=== PATIENT | male | born 1945 | race Caucasian/White ===

== ENCOUNTER → 2017-07-28 09:52 | Outpatient (CLI) | payer MEDICARE, SELFPAY ==
[2017-07-28 12:33] LABS: Estimated Glomerular Filt Rate > 60.0 mL/min (>60); Glucose 92 mg/dL (80-110); HEMOLYSIS 23 (0-50); Potassium 4.2 mmol/L (3.4-5.1); Sodium 141 mmol/L (137-145)
[2017-07-28 12:58] LABS: Free T4, Direct Thyroxine 1.54 ng/dL (0.78-2.19)
[2017-07-28 13:12] LABS: Thyroid Stimulating Hormone 4.23 uIU/mL (0.47-4.68)
== END ==
PROVIDERS: PCP Internal Medicine; Visit Provider Internal Medicine
DX: E03.9 Hypothyroidism, unspecified (principal)
CPT/HCPCS: 36415; 80048; 84439; 84443

== ENCOUNTER → 2017-12-31 12:52 | Outpatient (CLI) | payer MEDICARE, SELFPAY ==
[2017-12-31 14:52] LABS: Alanine Aminotransferase 24 IU/L (21-72); Albumin 4.6 g/dL (3.5-5.0); Albumin Globulin Ratio 1.5 (1.0-2.8); Alkaline Phosphatase 81 U/L (38-126); Aspartate Aminotransferase 23 IU/L (17-59); BUN Creatinine Ratio 26.7 (6-22); Bilirubin Total 0.6 mg/dL (0.2-1.3); Blood Urea Nitrogen 24 mg/dL (9-20); Calcium 9.8 mg/dL (8.4-10.2); Carbon Dioxide 35 mmol/L (22-32); Chloride 100 mmol/L (98-107); Estimated Glomerular Filt Rate > 60.0 mL/min (>60); Glucose 89 mg/dL (80-110); HEMOLYSIS < 15 (0-50); Sodium 145 mmol/L (137-145); Total Protein 7.6 g/dL (6.3-8.2)
[2017-12-31 15:07] LABS: Free T4, Direct Thyroxine 1.76 ng/dL (0.78-2.19)
[2017-12-31 15:21] LABS: Thyroid Stimulating Hormone 2.19 uIU/mL (0.47-4.68)
== END ==
PROVIDERS: PCP Internal Medicine; Visit Provider Internal Medicine
DX: E03.9 Hypothyroidism, unspecified (principal); R73.02 Impaired glucose tolerance (oral)
CPT/HCPCS: 36415; 80053; 84439; 84443

== ENCOUNTER → 2018-01-06 11:26 | Outpatient (CLI) | payer MEDICARE, SELFPAY ==
--- NOTE | 2018-01-06 11:29 | DI.RAD.S_ITS ---
PROCEDURE: XR CHEST 2V INDICATIONS: cough/weight loss TECHNIQUE: 2 views of the chest were acquired. COMPARISON: [facility], , CHEST 2 VIEW, 10/06/2010, 9:53. FINDINGS: Surgical changes and devices: None. Lungs and pleura: No pleural effusions or pneumothorax. Lungs are clear. Mediastinum: Mediastinal contours are normal. Heart size is normal. Bones and chest wall: No suspicious bony abnormalities. Soft tissues appear unremarkable. IMPRESSION: No acute cardiopulmonary pathology. Dictated by: David Garber M.D. on 01/06/2018 at 12:08 Approved by: David Garber M.D. on 01/06/2018 at 12:08
[2018-01-06 12:08] LABS: Add Manual Diff / Slide Review NO; Basophils Percent Auto 0.7 % (0-2); Hematocrit 51.1 % (41-53); Hemoglobin 16.9 g/dL (13.5-17.5); Lymphocytes Percent Auto 28.4 % (25-40); Mean Corpuscular HGB Conc 33.1 % (30-36); Mean Corpuscular Hemoglobin 31.2 PG (26-34); Mean Corpuscular Volume 94.1 fL (80-100); Monocytes Percent Auto 8.2 % (3-14); Neutrophils Absolute Auto 5000 /uL (3000-5900); Neutrophils Percent Auto 60.7 % (50-75); Platelet Count 214 X10^3/uL (150-400); Red Blood Cell Count 5.43 X10^6/uL (4.5-5.9); White Blood Cell Count 8.3 X10^3/uL (4.5-11.0)
[2018-01-06 12:38] LABS: Erythrocyte Sedimentation Rate 1 MM/HR (0-15)
[2018-01-06 13:03] LABS: C-Reactive Protein Quant < 0.5 mg/dL (<1.0)
== END ==
PROVIDERS: PCP Internal Medicine; Visit Provider Internal Medicine
DX: R05 Cough (principal); R63.4 Abnormal weight loss; E03.9 Hypothyroidism, unspecified; E78.2 Mixed hyperlipidemia
CPT/HCPCS: 36415; 71046; 85025; 85651; 86140

== ENCOUNTER → 2019-03-03 11:24 | Outpatient (CLI) | payer MEDICARE, SELFPAY | PROVIDERS: Family Provider Internal Medicine; PCP Internal Medicine; Visit Provider Nurse Practitioner | DX: J02.9 Acute pharyngitis, unspecified (principal) | CPT/HCPCS: 87070; 87077; 87185 ==

== ENCOUNTER → 2019-04-20 09:20 | Outpatient (CLI) | payer MEDICARE, SELFPAY ==
[2019-04-20 10:25] LABS: Alanine Aminotransferase 12 IU/L (<50); Albumin 4.2 g/dL (3.5-5.0); Albumin Globulin Ratio 1.1 (1.0-2.8); Alkaline Phosphatase 107 U/L (38-126); Aspartate Aminotransferase 22 IU/L (17-59); BUN Creatinine Ratio 24.3 (6-22); Bilirubin Total 0.7 mg/dL (0.2-1.3); Blood Urea Nitrogen 17 mg/dL (9-20); Calcium 9.3 mg/dL (8.4-10.2); Carbon Dioxide 31 mmol/L (22-32); Chloride 100 mmol/L (98-107); Cholesterol 204 mg/dL (140-199); Estimated Glomerular Filt Rate > 60.0 mL/min (>60); Glucose 103 mg/dL (80-110); HDL Cholesterol 48 mg/dL (40-60); HEMOLYSIS < 15 (0-50); LDL Cholesterol Calculated 144 mg/dL (<100); Potassium 4.2 mmol/L (3.4-5.1); Sodium 140 mmol/L (137-145); Total Protein 8.2 g/dL (6.3-8.2); Triglycerides 59 mg/dL (35-150)
[2019-04-20 10:26] LABS: Erythrocyte Sedimentation Rate 22 MM/HR (0-15)
[2019-04-20 10:52] LABS: Prostate Specific Antigen Scrn 2.59 ng/mL (0.1-4.0)
[2019-04-20 11:40] LABS: Free T4, Direct Thyroxine 2.37 ng/dL (0.78-2.19)
[2019-04-20 11:54] LABS: Thyroid Stimulating Hormone 3.51 uIU/mL (0.47-4.68)
== END ==
PROVIDERS: PCP Internal Medicine; Visit Provider Internal Medicine
DX: E03.9 Hypothyroidism, unspecified (principal); E78.2 Mixed hyperlipidemia; R63.4 Abnormal weight loss; R73.02 Impaired glucose tolerance (oral); Z12.5 Encounter for screening for malignant neoplasm of prostate
CPT/HCPCS: 36415; 80053; 80061; 84439; 84443; 85651; 86140; G0103

== ENCOUNTER 2020-09-19 10:44 | Emergency (ER) | payer MEDICARE, SELFPAY ==
[2020-09-19 10:49] VITALS: BP 141/98; PULSE 97; RESP 15; TEMP 36.6; O2SAT 97; BMI 22.4
== END 2020-09-19 13:22 | disposition left against medical advice (07) ==
PROVIDERS: Emergency Provider Emergency Medicine; PCP Internal Medicine
DX: M79.604 Pain in right leg (principal)
CPT/HCPCS: 99281

== ENCOUNTER → 2020-09-20 11:46 | Outpatient (CLI) | payer MEDICARE, SELFPAY ==
[2020-09-20 13:08] LABS: Erythrocyte Sedimentation Rate 2 MM/HR (0-15)
[2020-09-20 13:27] LABS: Alanine Aminotransferase 18 IU/L (<50); Albumin 4.4 g/dL (3.5-5.0); Albumin Globulin Ratio 1.4 (1.0-2.8); Alkaline Phosphatase 77 U/L (38-126); Aspartate Aminotransferase 27 IU/L (17-59); BUN Creatinine Ratio 32.4 (6-22); Bilirubin Total 0.6 mg/dL (0.2-1.3); Blood Urea Nitrogen 24 mg/dL (9-20); C-Reactive Protein Quant < 0.5 mg/dL (<1.0); Carbon Dioxide 29 mmol/L (22-32); Chloride 101 mmol/L (98-107); Creatine Kinase 53 U/L (55-170); Estimated Glomerular Filt Rate > 60.0 mL/min (>60); Globulin 3.2 g/dL (1.7-4.1); Glucose 182 mg/dL (80-110); HEMOLYSIS < 15 (0-50); Potassium 4.4 mmol/L (3.4-5.1); Sodium 137 mmol/L (137-145); Total Protein 7.6 g/dL (6.3-8.2)
== END ==
PROVIDERS: PCP Internal Medicine; Referring Provider Internal Medicine; Visit Provider Internal Medicine
DX: E03.9 Hypothyroidism, unspecified (principal); I10 Essential (primary) hypertension; E78.2 Mixed hyperlipidemia
CPT/HCPCS: 36415; 80053; 82550; 84439; 84443; 85651; 86140

== ENCOUNTER → 2021-02-28 15:32 | Outpatient (CLI) | payer MEDICARE, SELFPAY ==
[2021-02-28 15:52] LABS: Add Manual Diff / Slide Review NO; Basophils Absolute Auto 100 /uL (0-100); Basophils Percent Auto 0.7 % (0-2); Eosinophils Absolute Auto 200 /uL (0-450); Eosinophils Percent Auto 2.2 % (2-4); Hematocrit 46.9 % (41-53); Hemoglobin 15.4 g/dL (13.5-17.5); Lymphocytes Absolute Auto 1900 /uL (1100-4500); Lymphocytes Percent Auto 24.6 % (25-40); Mean Corpuscular HGB Conc 32.9 % (30-36); Mean Corpuscular Hemoglobin 30.6 PG (26-34); Monocytes Absolute Auto 700 /uL (0-900); Monocytes Percent Auto 8.3 % (3-14); Neutrophils Absolute Auto 5000 /uL (1500-7000); Neutrophils Percent Auto 64.2 % (50-75); Platelet Count 280 X10^3/uL (150-400); Red Blood Cell Count 5.04 X10^6/uL (4.5-5.9); Red Cell Distribution Width 13.7 % (11.6-14.8); White Blood Cell Count 7.8 X10^3/uL (4.5-11.0)
[2021-02-28 16:15] LABS: Erythrocyte Sedimentation Rate 6 MM/HR (0-15)
[2021-02-28 16:16] LABS: Alanine Aminotransferase 23 IU/L (<50); Albumin 4.2 g/dL (3.5-5.0); Albumin Globulin Ratio 1.4 (1.0-2.8); Alkaline Phosphatase 84 U/L (38-126); Amylase 74 U/L (30-110); Aspartate Aminotransferase 28 IU/L (17-59); Bilirubin Total 0.5 mg/dL (0.2-1.3); Blood Urea Nitrogen 19 mg/dL (9-20); Calcium 9.5 mg/dL (8.4-10.2); Carbon Dioxide 34 mmol/L (22-32); Chloride 102 mmol/L (98-107); Estimated Glomerular Filt Rate > 60.0 mL/min (>60); Globulin 3.1 g/dL (1.7-4.1); Glucose 100 mg/dL (80-110); HEMOLYSIS 23 (0-50); Lipase 123 U/L (23-300); Potassium 4.1 mmol/L (3.4-5.1); Sodium 141 mmol/L (137-145); Total Protein 7.3 g/dL (6.3-8.2)
[2021-02-28 16:55] LABS: C-Reactive Protein Quant 1.4 mg/dL (<1.0); Hemoglobin A1C% w Est Avg Glu 5.5 % (4.0-6.0)
[2021-02-28 17:13] LABS: Free T4, Direct Thyroxine 1.68 ng/dL (0.78-2.19)
[2021-02-28 17:27] LABS: Thyroid Stimulating Hormone 8.25 uIU/mL (0.47-4.68)
== END ==
PROVIDERS: PCP Internal Medicine; Referring Provider Internal Medicine; Visit Provider Internal Medicine
DX: E03.9 Hypothyroidism, unspecified (principal); R73.02 Impaired glucose tolerance (oral); E78.2 Mixed hyperlipidemia; R63.4 Abnormal weight loss
CPT/HCPCS: 36415; 80053; 82150; 83036; 83690; 84439; 84443; 85025; 85651; 86140

== ENCOUNTER 2022-05-21 07:11 | Day surgery (SDC) | payer MEDICARE, SELFPAY ==
--- NOTE | 2022-05-21 | PATH_ITS ---
[facility] Accession Number: [id number] No. of containers..01 Tissue . 01 Material submitted: . rectum - RECTAL MASS . 01 Diagnosis: Rectum Mass, Biopsies: Invasive adenocarcinoma, moderately differentiated, see microscopic description. No lymphovascular or perineural invasion identified. MRV 05/27/2022 1250 Local . 01 Comment: Resurlts were called to SYL Xie, on 05/27/2022 at 12:50 pm. . 01 Electronically signed: . Kj Granado MD, Pathologist NPI- [id number] . 01 Gross description: . RECTAL MASS: Received in formalin are multiple fragment(s) of berry, soft tissue measuring 0.1 x 0.1 x 0.1 cm to 1.5 x 1.0 x 0.6 cm submitted entirely in 2 cassette(s) /DENIS 05/22/2022 0057 Local . 01 Microscopic: . Examination of the rectal biopsy reveals tumor that is composed of irregular shaped complex glands that infitrate the submucosa. The neoplastic glands are lined by large pleomorphic cells with disordered stratification and loss of nuclear polarity. Mitotic figures are noted, and there is an inflammatory and desmoplastic stromal response. Negative for lymphovascular or perineural invasion. . As part of ongoing customer quality engineer, this case is also reviewed by Dr. Manisha De La Garza, who agrees with the interpretation. . 01 Pathologist provided ICD-10: K62.5, C21.8 . 01 CPT . 463137 Specimen Comment: A courtesy copy of this report has been sent to [phone] Performed at: 01 [facility] [address] [place] [address] Suite [facility], [place], [place] [id number] MD Percy Rosa MD Phone: [phone]
[2022-05-21] MEDS: LACTATED RINGERS 1,000 ML 42 ML IV (07:24)
[2022-05-21 07:32] VITALS: BP 110/76; PULSE 124; RESP 17; TEMP 36.4; O2SAT 95; BMI 21.7
--- NOTE | 2022-05-21 08:24 | PM.PREOP ---
Pre-operative Note COVID-19 COVID-19 status: Not tested Interval Note History & Physical reviewed/Exam performed by Physician: Yes Changes to H&P: No ASA Class (for procedural sedation): II
[2022-05-21] MEDS: LACTATED RINGERS 1,000 ML 120 ML IV (08:30)
--- NOTE | 2022-05-21 09:01 | P.OP.COLON_ITS ---
Operative Date/Time/Diagnoses Date of procedure: 05/21/22 Time of procedure: 09:02 Pre-op diagnosis: Rectal bleeding Post-op diagnosis: same Procedure & Clinicians Study performed: Colonoscopy Same procedure as scheduled: Yes Surgeon: Kevyn Haas Procedure Notes Procedure in detail: Surgeon: Kevyn Haas MD Anesthesia: Christine Agarwal REFRIGERATION UNIT REPAIRER Procedure: The patient was brought to the endoscopy suite, placed in left lateral decubitus position. The patient was connected to monitoring devices. A time-out was performed. Sedation was administered. Once the patient was adequately sedated, a digital rectal exam was performed and was normal aside from extensive external hemorrhoids. The scope was then inserted and advanced to the cecum where the appendiceal orifice was identified and photographed. The scope was then slowly withdrawn over greater than 6 minutes. The mucosa was tho roughly inspected. There was a large, friable circumferential mass in the upper rectum roughly 10 cm in. Multiple biopsies were taken with hot snare and cold snare and cold Jumbo forceps. Three small tattoos were placed just distal to the mass. The scope was retroflexed in the rectum. Mild internal hemorrhoids were noted. The scope was straightened and removed. The patient was awakened and brought to recovery. Scope withdrawal time: 21 minutes Sedation time: 27 minutes EBL: 10 mL Findings: Large circumferential mass in the upper rectum concerning for cancer Post-procedure Recommendations: Will call with biopsy results Disposition: PACU
[2022-05-21 09:06] VITALS: BP 106/67; PULSE 106; RESP 21; TEMP 37.2; O2SAT 96
[2022-05-21 09:13] VITALS: BP 114/81; PULSE 109; RESP 17; TEMP 37; O2SAT 93
[2022-05-21 09:17] VITALS: BP 120/83; PULSE 108; RESP 18; TEMP 37.1; O2SAT 90
[2022-05-21 09:24] VITALS: BP 124/83; PULSE 107; RESP 18; TEMP 36.9; O2SAT 96
[2022-05-21 09:38] VITALS: BP 138/84; PULSE 97; RESP 16; TEMP 36.3; O2SAT 93
== END 2022-05-21 09:41 | disposition home or self-care (01) ==
PROVIDERS: PCP Internal Medicine; Referring Provider Surgery; Visit Provider Surgery
PROC: 0DJD8ZZ Inspection of Lower Intestinal Tract, Via Natural or Artificial Opening Endoscopic (ICD-10-PCS; CPT 45378; principal; 2022-05-21 08:15)
DX: C20 Malignant neoplasm of rectum (principal); K64.4 Residual hemorrhoidal skin tags; K64.8 Other hemorrhoids
CPT/HCPCS: 45385; 45380; 45381; J2704

== ENCOUNTER → 2022-05-22 11:37 | Outpatient (CLI) | payer MEDICARE, SELFPAY ==
[2022-05-22 12:29] LABS: Add Manual Diff / Slide Review NO; Basophils Absolute Auto 0 /uL (0-100); Basophils Percent Auto 0.6 % (0-2); Eosinophils Absolute Auto 100 /uL (0-450); Eosinophils Percent Auto 1.6 % (2-4); Hemoglobin 15.6 g/dL (13.5-17.5); Lymphocytes Absolute Auto 1600 /uL (1100-4500); Lymphocytes Percent Auto 23.1 % (25-40); Mean Corpuscular HGB Conc 33.2 % (30-36); Mean Corpuscular Hemoglobin 31.1 PG (26-34); Mean Corpuscular Volume 93.7 fL (80-100); Monocytes Absolute Auto 600 /uL (0-900); Monocytes Percent Auto 7.9 % (3-14); Neutrophils Absolute Auto 4700 /uL (1500-7000); Neutrophils Percent Auto 66.8 % (50-75); Platelet Count 224 X10^3/uL (150-400); Red Blood Cell Count 5.01 X10^6/uL (4.5-5.9); Red Cell Distribution Width 14.1 % (11.6-14.8); White Blood Cell Count 7.1 X10^3/uL (4.5-11.0)
[2022-05-22 12:48] LABS: Alanine Aminotransferase 19 IU/L (<50); Albumin Globulin Ratio 1.1 (1.0-2.8); Alkaline Phosphatase 90 U/L (38-126); Aspartate Aminotransferase 24 IU/L (17-59); Bilirubin Total 0.5 mg/dL (0.2-1.3); Blood Urea Nitrogen 17 mg/dL (9-20); Calcium 8.7 mg/dL (8.4-10.2); Carbon Dioxide 33 mmol/L (22-32); Chloride 100 mmol/L (98-107); Estimated Glomerular Filt Rate > 60 mL/min (>60); Globulin 3.5 g/dL (1.7-4.1); Glucose 125 mg/dL (80-110); HEMOLYSIS < 15 (0-50); Potassium 3.7 mmol/L (3.4-5.1); Sodium 140 mmol/L (137-145); Total Protein 7.5 g/dL (6.3-8.2)
== END ==
PROVIDERS: PCP Internal Medicine; Referring Provider Surgery; Visit Provider Surgery
DX: K62.5 Hemorrhage of anus and rectum (principal)
CPT/HCPCS: 36415; 80053; 82378; 85025

== ENCOUNTER → 2022-05-26 09:53 | Outpatient (CLI) | payer MEDICARE, SELFPAY ==
--- NOTE | 2022-05-26 09:55 | DI.CT.S_ITS ---
PROCEDURE: CT CHEST ABD PEL W CON INDICATIONS: rectal mass TECHNIQUE: After the administration of oral and intravenous contrast, axial sections acquired from the supraclavicular neck to the pubic symphysis. Coronal and sagittal reformats were performed. For radiation dose reduction, the following was used: automated exposure control, adjustment of mA and/or kV according to patient size. COMPARISON: [facility], CT, THORAX WITH CONTRAST, 03/12/2016, 8:20. FINDINGS: CHEST: Lower Neck: No enlarged lymph nodes. Axillae: No enlarged lymph nodes. Chest Wall: Left chest wall fatty mass redemonstrated, probable intramuscular lipoma. Lungs and pleura: Emphysema is present. No consolidation or pleural effusion. Minimal patchy ground-glass opacity present right upper lobe. Heart: No pericardial effusion. Thoracic Vessels: The aorta and pulmonary arteries demonstrate normal size. Mediastinum and Diandra: No enlarged lymph nodes. Esophagus: No wall thickening. ABDOMEN: Liver: Multiple scattered subcentimeter hypodensities present within the liver, too small to characterize. One small hypodensity within the upper aspect of segment 2 (2/58) was present on the prior examination, and may represent a small cyst or hemangioma. Gallbladder: Unremarkable. Biliary ducts: Unremarkable. Pancreas: Unremarkable. Spleen: Unremarkable. Adrenal Glands: No definite suspicious adrenal nodule identified. Low-density thickening of both adrenal glands appear similar to the prior exam. Kidneys and Ureters: No hydronephrosis. Cortical cyst left upper kidney redemonstrated. Probable small nonobstructing stone right upper kidney. Stomach and Bowel: Segmental wall thickening of the upper rectum/rectosigmoid junction, likely corresponding to the provided clinical history of rectal mass. There are several adjacent lymph nodes which are suspicious, for example a 8 mm lymph node interposed between the suspected mass and the sacrum (series 6, image 45). No substantial upstream colonic dilation. Peritoneum: No abnormal intraperitoneal fluid. No free air. Abdominal Nodes: No retroperitoneal or mesenteric adenopathy by size criteria. Vessels: Aorta and inferior vena cava are normal in size. PELVIS: Pelvic Organs: Unremarkable CT appearance. Bladder: Unremarkable. Pelvic Nodes: Prominent/suspicious perirectal lymph nodes as above. No suspicious inguinal or external iliac chain lymph nodes identified. Bones: Multilevel degenerative change of the visualized spine. IMPRESSION: 1. Segmental wall thickening of the upper rectum/rectosigmoid junction, likely corresponds to the provided history of a rectal mass. Several adjacent perirectal lymph nodes are suspicious for georgie metastatic disease. 2. Multiple subcentimeter hepatic hypodensities are present, too small to characterize and indeterminate. Due to small size these would likely be difficult to definitively characterize by any imaging modality. Attention on follow-up is recommended. 3. No findings highly suspicious for thoracic metastatic disease identified. 4. Minimal patchy ground-glass opacity right upper lobe, likely infectious/inflammatory. Dictated by: Pillo Jacob M.D. on 05/26/2022 at 17:57 Approved by: Pillo Jacob M.D. on 05/26/2022 at 18:30
== END ==
PROVIDERS: PCP Internal Medicine; Referring Provider Surgery; Visit Provider Surgery
DX: K62.5 Hemorrhage of anus and rectum (principal); K62.9 Disease of anus and rectum, unspecified; R59.0 Localized enlarged lymph nodes; R22.2 Localized swelling, mass and lump, trunk; J43.9 Emphysema, unspecified
CPT/HCPCS: 71260; 74177; Q9967

== ENCOUNTER → 2022-06-03 13:05 | Outpatient (CLI) | payer MEDICARE, SELFPAY ==
--- NOTE | 2022-06-03 13:07 | DI.MRI.S_ITS ---
PROCEDURE: MR PELIS WO/W CON INDICATIONS: rectal exam TECHNIQUE: Coronal HASTE, sagittal T2 FSE, axial T1 FSE, axial and coronal nonbreath-hold T2 FSE. Axial dynamic VIBE during administration of contrast. Post-contrast axial and coronal VIBE/2-D FLASH with fat saturation from the iliac crests to the symphysis. Optional diffusion weighted imaging and ADC may be performed. COMPARISON: None. FINDINGS: Image quality: Excellent. Rectum: Morphology: Circumferential Clock face of tumor involvement: 2:00 to 12:00 Mucinous (high T2 signal): No Craniocaudal length: 6.0 cm Distance to anal verge: 9 cm Distance to top of sphincter complex/anorectal junction: 5 cm Relationship to anterior peritoneal reflection: At and above Tumor at or below puborectalis sling: Above T staging: Depth of extramural invasion: 16 mm. Extramural vascular invasion: No T3 tumors only: distance to mesorectal fascia (circumferential resection margin): 16 mm Pelvic organ involvement: Genitourinary: None. Pelvic sidewall (obturator internus, piriformis, ischiococcygeus muscles): No Pelvic floor (pubococcygeus, iliococcygeus, puborectalis, levator plate): No Sacrum: No Vessels (internal and external iliac arteries and veins): None Nerves (lumbosacral nerve roots): No Regional lymph nodes (mesorectal, inguinal, iliac): Single enlarged mesorectal lymph node by strict grading criteria (05/30). Other bowel and peritoneum: No pathologic free pelvic fluid. More proximal colon and small bowel loops are normal in caliber. Bones: Marrow is normal in overall signal. 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 Dictated by: Sha Lou M.D. on 06/03/2022 at 15:37 Approved by: Sha Lou M.D. on 06/03/2022 at 15:45
== END ==
PROVIDERS: PCP Internal Medicine; Referring Provider Surgery; Visit Provider Surgery
DX: C20 Malignant neoplasm of rectum (principal)
CPT/HCPCS: 72197; A9579

== ENCOUNTER → 2022-06-16 12:06 | Outpatient (CLI) | payer MEDICARE, SELFPAY | PROVIDERS: PCP Internal Medicine; Referring Provider Surgery; Visit Provider Surgery | DX: Z01.811 Encounter for preprocedural respiratory examination (principal); C21.8 Malignant neoplasm of overlapping sites of rectum, anus and anal canal | CPT/HCPCS: 93005 ==

== ENCOUNTER → 2023-02-03 10:17 | Outpatient (CLI) | payer MEDICARE, SELFPAY | PROVIDERS: PCP Internal Medicine; Visit Provider Surgery | DX: L24.B1 Irritant contact dermatitis related to digestive stoma or fistula (principal); Z93.2 Ileostomy status | CPT/HCPCS: 99203; 99213 ==

== ENCOUNTER → 2023-02-10 10:47 | Outpatient (CLI) | payer MEDICARE, SELFPAY | PROVIDERS: PCP Internal Medicine; Referring Provider Internal Medicine; Visit Provider Surgery | DX: Z43.3 Encounter for attention to colostomy (principal) | CPT/HCPCS: 99213 ==

== ENCOUNTER → 2023-03-25 16:33 | Outpatient (CLI) | payer MEDICARE, SELFPAY ==
--- NOTE | 2023-03-25 16:35 | DI.RAD.S_ITS ---
PROCEDURE: XR CHEST 2V INDICATIONS: cough TECHNIQUE: 2 views of the chest were acquired. COMPARISON: [facility], , XR CHEST 2V, 01/06/2018, 11:29. [facility], , CHEST 2 VIEW, 10/06/2010, 9:53. FINDINGS: Surgical changes and devices: None. Lungs and pleura: Lungs are clear. No pleural effusions or pneumothorax. Mediastinum: Mediastinal contours are normal. Heart size is normal. Bones and chest wall: No suspicious bony abnormalities. Soft tissues appear unremarkable. IMPRESSION: No acute cardiopulmonary abnormality is seen. Dictated by: Sha Lou M.D. on 03/26/2023 at 13:27 Approved by: Sha Lou M.D. on 03/26/2023 at 13:28
== END ==
PROVIDERS: PCP Internal Medicine; Referring Provider Nurse Practitioner Family; Visit Provider Nurse Practitioner Family
DX: R05.9 Cough, unspecified (principal)
CPT/HCPCS: 71046

== ENCOUNTER → 2023-10-27 07:57 | Outpatient (CLI) | payer MEDICARE, SELFPAY ==
[2023-10-27 09:16] LABS: Add Manual Diff / Slide Review NO; Basophils Absolute Auto 100 /uL (0-100); Basophils Percent Auto 1.2 % (0-2); Eosinophils Absolute Auto 300 /uL (0-450); Eosinophils Percent Auto 5.7 % (2-4); Hematocrit 44.2 % (41-53); Hemoglobin 14.9 g/dL (13.5-17.5); Lymphocytes Absolute Auto 1300 /uL (1100-4500); Mean Corpuscular HGB Conc 33.6 % (30-36); Mean Corpuscular Volume 95.1 fL (80-100); Monocytes Absolute Auto 400 /uL (0-900); Neutrophils Absolute Auto 2700 /uL (1500-7000); Neutrophils Percent Auto 57.1 % (50-75); Platelet Count 201 X10^3/uL (150-400); Red Blood Cell Count 4.65 X10^6/uL (4.5-5.9); White Blood Cell Count 4.8 X10^3/uL (4.5-11.0)
[2023-10-27 09:32] LABS: Alanine Aminotransferase 13 IU/L (<50); Albumin 4.1 g/dL (3.5-5.0); Albumin Globulin Ratio 1.3 (1.0-2.8); Alkaline Phosphatase 84 U/L (38-126); Aspartate Aminotransferase 22 IU/L (17-59); BUN Creatinine Ratio 26.8 (6-22); Bilirubin Total 0.7 mg/dL (0.2-1.3); Blood Urea Nitrogen 22 mg/dL (9-20); Calcium 9.1 mg/dL (8.4-10.2); Carbon Dioxide 31 mmol/L (22-32); Chloride 105 mmol/L (98-107); Cholesterol 195 mg/dL (140-199); Estimated Glomerular Filt Rate > 60 mL/min (>60); Globulin 3.2 g/dL (1.7-4.1); Glucose 113 mg/dL (80-110); HDL Cholesterol 73 mg/dL (40-60); HEMOLYSIS < 15 (0-50); LDL Cholesterol Calculated 112 mg/dL (<100); Potassium 4.2 mmol/L (3.4-5.1); Sodium 140 mmol/L (137-145); Total Protein 7.3 g/dL (6.3-8.2); Triglycerides 50 mg/dL (35-150)
[2023-10-27 09:44] LABS: Free T4, Direct Thyroxine 1.87 ng/dL (0.78-2.19)
[2023-10-27 09:58] LABS: Thyroid Stimulating Hormone 0.766 uIU/mL (0.47-4.68)
== END ==
PROVIDERS: PCP Internal Medicine; Referring Provider Internal Medicine; Visit Provider Internal Medicine
DX: J44.9 Chronic obstructive pulmonary disease, unspecified (principal); E78.2 Mixed hyperlipidemia; E03.9 Hypothyroidism, unspecified; R73.02 Impaired glucose tolerance (oral); C20 Malignant neoplasm of rectum
CPT/HCPCS: 36415; 80053; 80061; 84439; 84443; 85025

== ENCOUNTER 2023-12-13 19:01 | Observation (INO) | payer MEDICARE, SELFPAY ==
[2023-12-13] VITALS (14 sets, daily range): BP systolic 88–124; BP diastolic 51–66; PULSE 94–117; RESP 17–27; TEMP 36.7; O2SAT 88–100; BMI 20.6
--- NOTE | 2023-12-13 19:12 | DI.RAD.S_ITS ---
PROCEDURE: XR CHEST 1V INDICATIONS: suspected sepsis TECHNIQUE: One view of the chest was acquired. COMPARISON: [facility], NANCY, XR CHEST 2V, 03/25/2023, 16:53. [facility], CR, XR CHEST 2V, 01/06/2018, 11:29. FINDINGS: Surgical changes and devices: None. Lungs and pleura: Lungs are clear. No pleural effusions or pneumothorax. Mediastinum: Mediastinal contours appear normal. Heart size is normal. Bones and chest wall: No suspicious bony lesions. Overlying soft tissues appear unremarkable. IMPRESSION: No acute cardiopulmonary abnormality is seen. Dictated by: Magnus Ashley M.D. on 12/13/2023 at 20:00 Approved by: Magnus Ashley M.D. on 12/13/2023 at 20:01
--- NOTE | 2023-12-13 19:12 | EKG_ITS ---
[facility] [address] [place] [address] Test Date: 2023-12-13 Pat Name: Neris Bishop Department: [facility] Room: Gender: Male Manager Trade: HERACLIO : 1945 Requested By: Order Number: [id number] Reading MD: Alexandro Russell MD Measurements Intervals [place] Rate: 101 P: 85 DC: 152 QRS: -87 QRSD: 98 T: 74 QT: 364 QTc: 471 Interpretive Statements Sinus tachycardia Biatrial enlargement Left axis deviation Pulmonary disease pattern Electronically Signed On 12-14-2023 8:50:46 PDT by Alexandro Russell MD
--- NOTE | 2023-12-13 19:16 | DI.CT.S_ITS ---
PROCEDURE: CT HEAD/BRAIN WO CON INDICATIONS: syncope, +LOC TECHNIQUE: Noncontrast 4.5 mm thick angled axial sections acquired from the foramen magnum to the vertex, with coronal and sagittal reformats. For radiation dose reduction, the following was used: automated exposure control, adjustment of mA and/or kV according to patient size. COMPARISON: None. FINDINGS: Image quality: Diagnostic. CSF spaces: Basal cisterns are patent. No extra-axial fluid collections. The ventricles are symmetric in size and shape. Brain: No intracranial bleeds or masses. There is cerebral volume loss for age, with resultant ventricular and sulcal prominence. There are periventricular and deep white matter chronic small vessel ischemic changes. There is intracranial internal carotid artery atherosclerosis. Skull and face: Calvarium and visualized facial bones appear intact, without suspicious lesions. Sinuses: Visualized sinuses and mastoids are clear. IMPRESSION: No acute intracranial pathology. Dictated by: Magnus Ashley M.D. on 12/13/2023 at 20:01 Approved by: Magnus Ashley M.D. on 12/13/2023 at 20:02
[2023-12-13 19:29] LABS: Add Manual Diff / Slide Review NO; Basophils Absolute Auto 0 /uL (0-100); Basophils Percent Auto 0.4 % (0-2); Eosinophils Absolute Auto 100 /uL (0-450); Eosinophils Percent Auto 0.9 % (2-4); Hematocrit 52.9 % (41-53); Hemoglobin 17.5 g/dL (13.5-17.5); Lymphocytes Absolute Auto 500 /uL (1100-4500); Lymphocytes Percent Auto 4.9 % (25-40); Mean Corpuscular Hemoglobin 31.6 PG (26-34); Mean Corpuscular Volume 95.7 fL (80-100); Monocytes Absolute Auto 400 /uL (0-900); Monocytes Percent Auto 3.9 % (3-14); Neutrophils Absolute Auto 9100 /uL (1500-7000); Neutrophils Percent Auto 89.9 % (50-75); Platelet Count 261 X10^3/uL (150-400); Red Blood Cell Count 5.53 X10^6/uL (4.5-5.9); Red Cell Distribution Width 14.7 % (11.6-14.8); White Blood Cell Count 10.1 X10^3/uL (4.5-11.0)
[2023-12-13 19:34] LABS: INR 0.9 (0.9-1.3); Prothrombin Time 10.7 SECONDS (9.4-12.5)
[2023-12-13] MEDS: SODIUM CHLORIDE 0.9% 1,000 ML 1000 ML IV (19:34)
[2023-12-13 19:37] LABS: PTT Partial Thromboplastin Tim 30 SECONDS (25.1-36.5)
[2023-12-13 19:44] LABS: Alanine Aminotransferase 20 IU/L (<50); Albumin Globulin Ratio 1.1 (1.0-2.8); Alkaline Phosphatase 115 U/L (38-126); Aspartate Aminotransferase 36 IU/L (17-59); BUN Creatinine Ratio 19.7 (6-22); Bilirubin Total 0.7 mg/dL (0.2-1.3); Blood Urea Nitrogen 23 mg/dL (9-20); Calcium 10.1 mg/dL (8.4-10.2); Carbon Dioxide 29 mmol/L (22-32); Chloride 101 mmol/L (98-107); Creatine Kinase 78 U/L (55-170); Estimated Glomerular Filt Rate > 60 mL/min (>60); Globulin 4.6 g/dL (1.7-4.1); Glucose 146 mg/dL (80-110); HEMOLYSIS 42 (0-50); Lipase 121 U/L (23-300); Potassium 4.3 mmol/L (3.4-5.1); Sodium 142 mmol/L (137-145); Total Protein 9.6 g/dL (6.3-8.2)
[2023-12-13 19:45] LABS: Lactate (Lactic Acid) 2.7 mmol/L (0.7-2.1)
[2023-12-13 19:56] LABS: Troponin I < 0.012 ng/mL (0.01-0.034)
[2023-12-13 20:01] LABS: Procalcitonin 0.076 ng/mL (<0.5)
--- NOTE | 2023-12-13 20:13 | ED.SYNCOPE ---
HPI - Syncope General Chief Complaint: Syncope Stated Complaint: Syncope, +LOC, Lac. No thinners. +Orthostatic Time Seen by Provider: 12/13/23 19:16 Source: EMS Mode of arrival: EMS History of Present Illness HPI narrative: 78-year-old male sustained a small left anterior foreleg laceration in [facility] last week, got infected, was started on cephalexin antibiotic, completed a 7 day course, had some increased redness, was seen yesterday at a walk-in clinic locally, was started on Augmentin antibiotic, took 1st dose earlier this morning, less redness noted this morning, was playing cards sitting down in his house proximally 4:00 p.m., felt nauseated, went to go toward the bathroom, with standing, then he passed out. Arrival by EMS, initial low blood pressure, improved EN route with IV fluid bolus. He did not recall tripping over anything. He did not have focal weakness to face arm or leg. No shaking or seizure activity. No incontinence of urine or stool. No preceding or subsequent chest pain or trouble breathing. He hit his head, passed out for some period of time. He has a laceration to his right upper eyelid and forehead area. No vision complaints, diplopia, pain with any eye movements. No other injuries. Related Data Home Medications Medication Instructions Recorded Confirmed lorazepam 0.5 mg tablet 0.5 mg PO BID PRN Sleep 10/08/22 12/14/23 polyethylene glycol 3350 17 gram 17 g PO DAILY 03/25/23 12/14/23 oral powder packet albuterol sulfate 90 mcg/actuation 2 puff inhalation Q4-6H PRN 12/14/23 12/14/23 aerosol inhaler wheezing metoprolol succinate 25 mg 25 mg PO DAILY 12/14/23 12/14/23 tablet,extended release 24 hr Previous Rx's Medication Instructions Recorded levothyroxine 150 mcg tablet 150 mcg PO QAM #90 tabs 09/03/23 amoxicillin 875 mg-potassium 1 tab PO BID #14 tabs 12/13/23 clavulanate 125 mg tablet Allergies Allergy/AdvReac Type Severity Reaction Status Date / Time No Known Drug Allergies Allergy Verified 12/13/23 19:12 Review of Systems Review of Systems Narrative: see HPI Patient History Medical History (Updated 12/14/23 @ 00:31 by Felton Luna MD) Essential hypertension Rectal cancer (~04/2022) COPD (chronic obstructive pulmonary disease) Penile abnormality Acquired hypothyroidism (01/10/15) Mixed hyperlipidemia (10/08/10) Impaired glucose tolerance (10/08/10) Surgical History S/P closure of ileostomy (~01/2023) History of low anterior resection of rectum (~12/2022) S/P inguinal hernia repair (~08/2023) Family History Father Prostate cancer Sister Lung cancer Mother Myocardial infarct Social History marital status: number of children: 2 household members: spouse lives independently: Yes caregiver/support person: No housing: house pets and animals: No education level: high school occupational status: other Previous occupational history: Self Employed - [employer] travel history: over 6 months ago leisure activities: fishing and other Smoking Status: Current some day smoker Tobacco: How many years used: 50 Smokeless tobacco user: other quit status: considering quitting second hand exposure: No alcohol intake: current substance use type: does not use Smoking Status: Former smoker alcohol intake frequency: a few times a week Substance Use Type: does not use Exam Narrative Exam Narrative: GENERAL: Well-developed patient, in mild distress. HEAD: Atraumatic. Normocephalic. Small nonsuturable 1 cm linear abrasion right forehead. EYES: Pupils equal round and reactive. Extraocular motions intact. No scleral icterus. No injection or drainage. Right upper eyelid laceration 2 cm hockey-stick shaped, stick portion in horizontal plane. No ptosis, blinks well. No visible musculature, does not seem to be extending through the tarsal plate. No obvious injury to oculum. Painless movement of the eyes. No diplopia ENT: Nose without bleeding, purulent drainage. Throat without erythema, tonsillar hypertrophy or exudate. Airway patent. NECK: Trachea midline. Non tender CARDIOVASCULAR: Regular rate and rhythm without murmurs, gallops, or rubs. RESPIRATORY: Clear to auscultation. Breath sounds equal bilaterally. No wheezes, rales, or rhonchi. GASTROINTESTINAL: Abdomen soft, non-tender, nondistended. EXTREMITIES: No edema or joint tenderness. BACK: Nontender without deformity or crepitance. No flank tenderness. NEURO: AOx3. Motor functions grossly nonfocal SKIN: No rash or erythema of visible areas Initial Vital Signs Initial Vital Signs: Vital Signs Temperature 98.1 F 12/13/23 19:08 Pulse Rate 102 H 12/13/23 19:08 Respiratory Rate 17 12/13/23 19:08 Blood Pressure 104/62 12/13/23 19:08 Pulse Oximetry 90 L 12/13/23 19:08 Oxygen Delivery Method Room Air 12/13/23 19:08 Procedures Laceration Repair Laceration 1: Time of procedure: 22:27 Site: face (right upper eyelid, L-shaped ) Side (If applicable): right Size (cm): 2 Local Anesthetic: lidocaine 1% Skin layer closed with: nylon Skin layer suture size: 6-0 Number of sutures: 7 (corner stitch x1, simple stitches x6) Laceration 2: Time of procedure: 22:30 Site: face (right forehead) Size (cm): 1.0 Description: linear Skin layer closed with: steri-strips (x3 applied with good wound approximation) Course Orders Ordered: ED Orders 12/13/23 18:40 Complete Blood Count AUTO DIFF Stat Comprehensive Metabolic Panel Stat Lactate (Lactic Acid) Stat Lipase Stat PTT Partial Thromboplastin Paul Stat Procalcitonin Stat Prothrombin Time INR Stat Troponin & CK Cardiac Panel Stat 12/13/23 19:12 XR chest 1V Stat EKG-12 Lead Stat RT Consult Eval and Treat NOW 12/13/23 19:16 CT head/brain wo con Stat 12/13/23 20:17 CT facial bones wo con Stat 12/13/23 20:20 Blood Culture Stat 12/13/23 22:32 Blood Culture Stat 12/13/23 22:50 Troponin I Stat 12/14/23 00:28 Urinalysis and Microscopic Stat Ondansetron HCl (Ondansetron 4 Mg/2 Ml Inj) 4 mg IV NOW PRN PRN Reason: Nausea And Vomiting Ondansetron HCl (Ondansetron 4 Mg Odt) 4 mg SL NOW PRN PRN Reason: Nausea And Vomiting Discontinued Medications Erythromycin (Erythromycin Ophth 1 Gm Oint) 1 applic EYE-RIGHT NOW ONE Stop: 12/13/23 22:27 Last Admin: 12/13/23 22:31 Dose: 1 applic Documented By: NARDA Sodium Chloride (Normal Saline 0.9%) 1,000 mls @ 1,000 mls/hr IV BOLUS ONE Stop: 12/13/23 20:11 Last Infusion: 12/13/23 20:31 Dose: Infused Documented By: Admin: 12/13/23 19:34 Dose: 1,000 mls/hr Documented By: NARDA Ceftriaxone Sodium 1,000 mg/ (Sodium Chloride) 100 mls @ 200 mls/hr IV NOW ONE Stop: 12/13/23 22:50 Last Infusion: 12/13/23 23:50 Dose: Infused Documented By: Admin: 12/13/23 23:14 Dose: 200 mls/hr Documented By: NARDA Sodium Chloride (Normal Saline 0.9%) 1,000 mls @ 1,000 mls/hr IV BOLUS ONE Stop: 12/14/23 01:01 Last Infusion: 12/14/23 01:08 Dose: Infused Documented By: Admin: 12/14/23 00:06 Dose: 1,000 mls/hr Documented By: NARDA Vital Signs Vital signs: Vital Signs - 8 hr 12/13/23 19:08 12/13/23 19:20 12/13/23 19:30 Temperature 98.1 F Pulse Rate 102 H 102 H 102 H Pulse Rate [Orthostatic Lying] Pulse Rate [Orthostatic Sitting] Pulse Rate [Orthostatic Standing] Respiratory Rate 17 23 22 Blood Pressure 104/62 Blood Pressure [Orthostatic Lying] Blood Pressure [Orthostatic Sitting] Blood Pressure [Orthostatic Standing] Pulse Oximetry 90 L 88 L Oxygen Delivery Method Room Air Room Air Oxygen Flow Rate 12/13/23 19:30 12/13/23 19:32 12/13/23 20:00 Temperature Pulse Rate 97 H Pulse Rate [Orthostatic Lying] Pulse Rate [Orthostatic Sitting] Pulse Rate [Orthostatic Standing] Respiratory Rate 19 Blood Pressure 118/61 Blood Pressure [Orthostatic Lying] Blood Pressure [Orthostatic Sitting] Blood Pressure [Orthostatic Standing] Pulse Oximetry 94 94 Oxygen Delivery Method Nasal Cannula Oxygen Flow Rate 2 12/13/23 20:30 12/13/23 20:31 12/13/23 20:31 Temperature Pulse Rate 117 H 109 H Pulse Rate [Orthostatic Lying] Pulse Rate [Orthostatic Sitting] Pulse Rate [Orthostatic Standing] Respiratory Rate 22 27 H Blood Pressure 112/66 Blood Pressure [Orthostatic Lying] Blood Pressure [Orthostatic Sitting] Blood Pressure [Orthostatic Standing] Pulse Oximetry 100 92 Oxygen Delivery Method Oxygen Flow Rate 12/13/23 21:00 12/13/23 21:00 12/13/23 21:30 Temperature Pulse Rate 101 H 99 H Pulse Rate [Orthostatic Lying] Pulse Rate [Orthostatic Sitting] Pulse Rate [Orthostatic Standing] Respiratory Rate 21 20 Blood Pressure 119/63 Blood Pressure [Orthostatic Lying] Blood Pressure [Orthostatic Sitting] Blood Pressure [Orthostatic Standing] Pulse Oximetry 95 94 Oxygen Delivery Method Nasal Cannula Oxygen Flow Rate 2 12/13/23 21:30 12/13/23 22:00 12/13/23 22:00 Temperature Pulse Rate 100 H Pulse Rate [Orthostatic Lying] Pulse Rate [Orthostatic Sitting] Pulse Rate [Orthostatic Standing] Respiratory Rate 21 Blood Pressure 101/58 L 124/61 Blood Pressure [Orthostatic Lying] Blood Pressure [Orthostatic Sitting] Blood Pressure [Orthostatic Standing] Pulse Oximetry 93 Oxygen Delivery Method Nasal Cannula Oxygen Flow Rate 2 12/13/23 22:30 12/13/23 22:30 12/13/23 23:00 Temperature Pulse Rate 100 H Pulse Rate [Orthostatic Lying] Pulse Rate [Orthostatic Sitting] Pulse Rate [Orthostatic Standing] Respiratory Rate 20 Blood Pressure 97/51 L 117/56 L Blood Pressure [Orthostatic Lying] Blood Pressure [Orthostatic Sitting] Blood Pressure [Orthostatic Standing] Pulse Oximetry 93 Oxygen Delivery Method Nasal Cannula Oxygen Flow Rate 2 12/13/23 23:00 12/13/23 23:30 12/13/23 23:30 Temperature Pulse Rate 96 H 94 H Pulse Rate [Orthostatic Lying] Pulse Rate [Orthostatic Sitting] Pulse Rate [Orthostatic Standing] Respiratory Rate 19 22 Blood Pressure 108/63 Blood Pressure [Orthostatic Lying] Blood Pressure [Orthostatic Sitting] Blood Pressure [Orthostatic Standing] Pulse Oximetry 93 95 Oxygen Delivery Method Nasal Cannula Nasal Cannula Oxygen Flow Rate 2 2 12/13/23 23:59 12/13/23 23:59 12/14/23 00:00 Temperature Pulse Rate 102 H 112 H Pulse Rate [Orthostatic Lying] Pulse Rate [Orthostatic Sitting] Pulse Rate [Orthostatic Standing] Respiratory Rate 25 H 20 Blood Pressure 88/54 L Blood Pressure [Orthostatic Lying] Blood Pressure [Orthostatic Sitting] Blood Pressure [Orthostatic Standing] Pulse Oximetry 94 93 Oxygen Delivery Method Nasal Cannula Nasal Cannula Oxygen Flow Rate 2 2 12/14/23 00:01 12/14/23 00:01 12/14/23 00:04 Temperature Pulse Rate 115 H Pulse Rate [Orthostatic Lying] Pulse Rate [Orthostatic Sitting] Pulse Rate [Orthostatic Standing] Respiratory Rate 23 Blood Pressure 91/52 L 112/58 L Blood Pressure [Orthostatic Lying] Blood Pressure [Orthostatic Sitting] Blood Pressure [Orthostatic Standing] Pulse Oximetry 94 Oxygen Delivery Method Nasal Cannula Oxygen Flow Rate 2 12/14/23 00:04 12/14/23 00:08 12/14/23 00:08 Temperature Pulse Rate 105 H Pulse Rate [Orthostatic Lying] 96 H Pulse Rate [Orthostatic Sitting] 107 H Pulse Rate [Orthostatic Standing] 112 H Respiratory Rate 22 Blood Pressure Blood Pressure [Orthostatic Lying] 112/58 L Blood Pressure [Orthostatic Sitting] 88/54 L Blood Pressure [Orthostatic Standing] 91/52 L Pulse Oximetry 88 L Oxygen Delivery Method Room Air Oxygen Flow Rate 12/14/23 00:23 12/14/23 00:23 12/14/23 00:30 Temperature Pulse Rate 104 H Pulse Rate [Orthostatic Lying] Pulse Rate [Orthostatic Sitting] Pulse Rate [Orthostatic Standing] Respiratory Rate 19 Blood Pressure 101/60 96/58 L Blood Pressure [Orthostatic Lying] Blood Pressure [Orthostatic Sitting] Blood Pressure [Orthostatic Standing] Pulse Oximetry 97 Oxygen Delivery Method Nasal Cannula Oxygen Flow Rate 2 12/14/23 00:30 Temperature Pulse Rate 104 H Pulse Rate [Orthostatic Lying] Pulse Rate [Orthostatic Sitting] Pulse Rate [Orthostatic Standing] Respiratory Rate 18 Blood Pressure Blood Pressure [Orthostatic Lying] Blood Pressure [Orthostatic Sitting] Blood Pressure [Orthostatic Standing] Pulse Oximetry 95 Oxygen Delivery Method Nasal Cannula Oxygen Flow Rate 2 MDM - Syncope Lab Data Attestation: I reviewed the patient's lab results. 12/13/23 18:40 12/13/23 18:40 Labs: Lab Results 12/13/23 12/13/23 12/13/23 Range/Units 18:40 21:12 22:50 WBC 10.1 (4.5-11.0) X10^3/uL RBC 5.53 (4.5-5.9) X10^6/uL Hgb 17.5 (13.5-17.5) g/dL Hct 52.9 (41-53) % MCV 95.7 (80-100) fL MCH 31.6 (26-34) PG MCHC 33.0 (30-36) % RDW 14.7 (11.6-14.8) % Plt Count 261 (150-400) X10^3/uL Neut % (Auto) 89.9 H (50-75) % Lymph % (Auto) 4.9 L (25-40) % [place] % (Auto) 3.9 (3-14) % Eos % (Auto) 0.9 L (2-4) % Baso % (Auto) 0.4 (0-2) % Neut # (Auto) 9100 H (3397-8238) /uL Lymph # (Auto) 500 L (7862-2477) /uL [place] # (Auto) 400 (0-900) /uL Eos # (Auto) 100 (0-450) /uL Baso # (Auto) 0 (0-100) /uL PT 10.7 (9.4-12.5) SECONDS INR 0.9 (0.9-1.3) APTT 30 (25.1-36.5) SECONDS Sodium 142 (137-145) mmol/L Potassium 4.3 (3.4-5.1) mmol/L Chloride 101 (98-107) mmol/L Carbon Dioxide 29 (22-32) mmol/L BUN 23 H (9-20) mg/dL Creatinine 1.17 (0.66-1.25) mg/dL Estimated GFR > 60 (>60) mL/min BUN/Creatinine Ratio 19.7 (6-22) Glucose 146 H (80-110) mg/dL Lactate 2.7 H 1.6 (0.7-2.1) mmol/L Calcium 10.1 (8.4-10.2) mg/dL Total Bilirubin 0.7 (0.2-1.3) mg/dL AST 36 (17-59) IU/L ALT 20 (<50) IU/L Alkaline Phosphatase 115 (38-126) U/L Total Creatine Kinase 78 (55-170) U/L Troponin I < 0.012 < 0.012 (0.01-0.034) ng/mL Total Protein 9.6 H (6.3-8.2) g/dL Albumin 5.0 (3.5-5.0) g/dL Globulin 4.6 H (1.7-4.1) g/dL Albumin/Globulin Ratio 1.1 (1.0-2.8) Lipase 121 (23-300) U/L Procalcitonin 0.076 (<0.5) ng/mL Urine Color Urine Appearance Urine pH (4.5-8.0) Ur Specific [place] (1.000-1.035) Urine Protein (Negative) Urine Glucose (UA) (Negative) g/dL Urine Ketones (NEGATIVE) Urine Occult Blood (Negative) Urine Nitrate (Negative) Urine Bilirubin (NEGATIVE) Urine Urobilinogen (0.2) E.U./dL Ur Leukocyte Esterase (NEGATIVE) Urine RBC (0-5/HPF) Urine WBC (0-5/HPF) Ur Squamous Epith Cells (0-5/HPF) Urine Bacteria (None) Ur Culture Indicated? Vol Urine Centrifuged 12/14/23 Range/Units 00:28 WBC (4.5-11.0) X10^3/uL RBC (4.5-5.9) X10^6/uL Hgb (13.5-17.5) g/dL Hct (41-53) % MCV (80-100) fL MCH (26-34) PG MCHC (30-36) % RDW (11.6-14.8) % Plt Count (150-400) X10^3/uL Neut % (Auto) (50-75) % Lymph % (Auto) (25-40) % [place]oul[place] % (Auto) (3-14) % Eos % (Auto) (2-4) % Baso % (Auto) (0-2) % Neut # (Auto) (6960-9801) /uL Lymph # (Auto) (9069-1842) /uL [place]oul[place] # (Auto) (0-900) /uL Eos # (Auto) (0-450) /uL Baso # (Auto) (0-100) /uL PT (9.4-12.5) SECONDS INR (0.9-1.3) APTT (25.1-36.5) SECONDS Sodium (137-145) mmol/L Potassium (3.4-5.1) mmol/L Chloride (98-107) mmol/L Carbon Dioxide (22-32) mmol/L BUN (9-20) mg/dL Creatinine (0.66-1.25) mg/dL Estimated GFR (>60) mL/min BUN/Creatinine Ratio (6-22) Glucose (80-110) mg/dL Lactate (0.7-2.1) mmol/L Calcium (8.4-10.2) mg/dL Total Bilirubin (0.2-1.3) mg/dL AST (17-59) IU/L ALT (<50) IU/L Alkaline Phosphatase (38-126) U/L Total Creatine Kinase (55-170) U/L Troponin I (0.01-0.034) ng/mL Total Protein (6.3-8.2) g/dL Albumin (3.5-5.0) g/dL Globulin (1.7-4.1) g/dL Albumin/Globulin Ratio (1.0-2.8) Lipase (23-300) U/L Procalcitonin (<0.5) ng/mL Urine Color Yellow Urine Appearance Clear Urine pH 5.5 (4.5-8.0) Ur Specific [place] 1.025 (1.000-1.035) Urine Protein 1+ H (Negative) Urine Glucose (UA) Negative (Negative) g/dL Urine Ketones Trace H (NEGATIVE) Urine Occult Blood Negative (Negative) Urine Nitrate Negative (Negative) Urine Bilirubin Negative (NEGATIVE) Urine Urobilinogen 0.2 (0.2) E.U./dL Ur Leukocyte Esterase Negative (NEGATIVE) Urine RBC None seen (0-5/HPF) Urine WBC None seen (0-5/HPF) Ur Squamous Epith Cells 0-1 /hpf (0-5/HPF) Urine Bacteria None seen (None) Ur Culture Indicated? Cult not indicated Vol Urine Centrifuged 10ml (spun) Imaging Data Chest x-ray: Radiologist's Impression: [address] [address] XRay Report Signed Patient: Neris Bishop MR#: [id number] : 1945 Acct:[id number] Age/Sex: 78 / M Date of Service: 12/13/23 Loc: ED Accession Number: [id number] Procedure: XR chest 1V Ordering Provider: Felton Luna MD PROCEDURE: XR CHEST 1V INDICATIONS: suspected sepsis TECHNIQUE: One view of the chest was acquired. COMPARISON: [facility], CR, XR CHEST 2V, 03/25/2023, 16:53. [facility], CR, XR CHEST 2V, 01/06/2018, 11:29. FINDINGS: Surgical changes and devices: None. Lungs and pleura: Lungs are clear. No pleural effusions or pneumothorax. Mediastinum: Mediastinal contours appear normal. Heart size is normal. Bones and chest wall: No suspicious bony lesions. Overlying soft tissues appear unremarkable. IMPRESSION: No acute cardiopulmonary abnormality is seen. Dictated by: Magnus Ashley M.D. on 12/13/2023 at 20:00 Approved by: Magnus Ashley M.D. on 12/13/2023 at 20:01 CT scan - head: Radiologist's Impression: [place] [address] CT Scan Report Signed Patient: Neris Bishop MR#: [id number] : 1945 Acct:[id number] Age/Sex: 78 / M Date of Service: 12/13/23 Loc: ED Accession Number: [id number] Procedure: CT head/brain wo con Ordering Provider: Felton Luna MD PROCEDURE: CT HEAD/BRAIN WO CON INDICATIONS: syncope, +LOC TECHNIQUE: Noncontrast 4.5 mm thick angled axial sections acquired from the foramen magnum to the vertex, with coronal and sagittal reformats. For radiation dose reduction, the following was used: automated exposure control, adjustment of mA and/or kV according to patient size. COMPARISON: None. FINDINGS: Image quality: Diagnostic. CSF spaces: Basal cisterns are patent. No extra-axial fluid collections. The ventricles are symmetric in size and shape. Brain: No intracranial bleeds or masses. There is cerebral volume loss for age, with resultant ventricular and sulcal prominence. There are periventricular and deep white matter chronic small vessel ischemic changes. There is intracranial internal carotid artery atherosclerosis. Skull and face: Calvarium and visualized facial bones appear intact, without suspicious lesions. Sinuses: Visualized sinuses and mastoids are clear. IMPRESSION: No acute intracranial pathology. Dictated by: Magnus Ashley M.D. on 12/13/2023 at 20:01 Approved by: Magnus Ashley M.D. on 12/13/2023 at 20:02 CT Face: Radiologist's Impression: Close Face CT (Signed) Sha Lou - 12/13/[address] (Signed) Magnus Ashley - 12/13/23 Chest X-Ray (Signed) Magnus Ashley - 12/13/23 Launch?[address] [address] [address] Scan Report Signed Patient: Neris iBshop MR#: [id number] : 1945 Acct:[id number] Age/Sex: 78 / M Date of Service: 12/13/23 Loc: ED Accession Number: [id number] Procedure: CT facial bones wo con Ordering Provider: Felton Luna MD PROCEDURE: CT FACIAL BONES WO CON INDICATIONS: syncope, facial trauma, lac TECHNIQUE: Noncontrast 2.5 mm thick axial images acquired from the mandible through the frontal sinuses, with coronal and sagittal reformatting. For radiation dose reduction, the following was used: automated exposure control, adjustment of mA and/or kV according to patient size. COMPARISON: None. FINDINGS: Image quality: Excellent. Bones and teeth: Chronic nasal bone fracture. Orbital smith are intact. Sinus smith show no fracture or deformity. Nasal bones and septum are intact. Visualized portions of the mandible demonstrate no fractures or subluxation. Zygomatic arches are intact. Pterygoid plates are intact. Visualized portions of the skull base and auditory canals are intact. Sinuses: Paranasal sinuses are aerated, without fluid levels, mucosal thickening, or mucoceles. Mastoid air cells are aerated. Soft tissues: No edema, masses, or fluid collections. No enlarged lymph nodes. No soft tissue lacerations or debris. Vascular: Visualized vascular structures appear normal in the absence of contrast. Bony vascular foramina and canals are intact. IMPRESSION: No acute bony abnormality or air-fluid level. Dictated by: Sha Lou M.D. on 12/13/2023 at 20:40 Approved by: Sha Lou M.D. on 12/13/2023 at 20:41 ECG Data Attestation: I personally reviewed and interpreted this ECG as follows: Interpretation: Sinus tachycardia with a ventricular response rate 101, no obvious ST elevation changes. NC 152. QRS 98. QTC 471. MDM Narrative Medical decision making narrative: 78-year-old male with recent left anterior foreleg cellulitis, prior course of cephalexin, now just having started Augmentin, 1st dose this morning, later this afternoon had syncopal episode while walking away from table playing cards, woke up on the ground, no chest pain, no dyspnea, has lacerations to his right forehead and right upper eyelid. Reported low blood pressure by EMS, IV fluids given, improved blood pressure here. Left leg swelling and redness anterior foreleg seems improved. CT head study negative. CT face study negative. See radiology reports. EKG and troponin negative. Electrolytes unremarkable. UA negatvie. Small linear nonsuturable laceration forehead was Steri-Strips, see procedure note. Right upper eyelid laceration not obviously through the tarsal plate, somewhat hockey-stick shaped with longer component in horizontal plane. 6-0 Ethilon repair with corner stitch and simple interrupted sutures after local anesthetic, see procedure note. Erythromycin topical ophthalmic antibiotic applied over the eyelid closed skin wound, can drip into eye without problems EKG and serial troponins negative. Unclear why patient had syncopal episode and fall. Did not sound mechanical in nature. Consider further observation, patient willing to stay for admission IV fluids given, reported initial low blood pressure by EMS. Orthostatics repeated after fluids, they did diminish, further IV fluids. Blood culture sent, IV ceftriaxone for cellulitis if source of hypotension and/or sepsis. Consider admission. PCP rDew, we will contact cross covering physician regarding admission 0030, case discussed with cross covering physician Dr. Almonte, who accepts patient for admission to observation/telemetry Critical Care Time Critical Care Time Total Critical Care Time: 35 Attestation: The high probability of a clinically significant, sudden or life threatening deterioration of the [cardiopulmonary, integumen, musculoskeletal, ophthalmologic] system(s) required my full and direct attention, intervention and personal management. The aggregate critical care time was [35] minutes. This time is in addition to time spent performing reported procedures but includes the following: [x] Data Review and interpretation [x] Patient assessment and monitoring of vital signs [x] Documentation [x] Medication orders and management Discharge Plan Departure Patient Disposition: Admitted as Observation Clinical Impression: Syncope and collapse, Fall from ground level, Forehead laceration, Eyelid laceration, right, Cellulitis of left leg Admit Date/Time: 12/14/23 00:30 Admit Provider: Kirk Almonte
--- NOTE | 2023-12-13 20:17 | DI.CT.S_ITS ---
PROCEDURE: CT FACIAL BONES WO CON INDICATIONS: syncope, facial trauma, lac TECHNIQUE: Noncontrast 2.5 mm thick axial images acquired from the mandible through the frontal sinuses, with coronal and sagittal reformatting. For radiation dose reduction, the following was used: automated exposure control, adjustment of mA and/or kV according to patient size. COMPARISON: None. FINDINGS: Image quality: Excellent. Bones and teeth: Chronic nasal bone fracture. Orbital smith are intact. Sinus smith show no fracture or deformity. Nasal bones and septum are intact. Visualized portions of the mandible demonstrate no fractures or subluxation. Zygomatic arches are intact. Pterygoid plates are intact. Visualized portions of the skull base and auditory canals are intact. Sinuses: Paranasal sinuses are aerated, without fluid levels, mucosal thickening, or mucoceles. Mastoid air cells are aerated. Soft tissues: No edema, masses, or fluid collections. No enlarged lymph nodes. No soft tissue lacerations or debris. Vascular: Visualized vascular structures appear normal in the absence of contrast. Bony vascular foramina and canals are intact. IMPRESSION: No acute bony abnormality or air-fluid level. Dictated by: Sha Lou M.D. on 12/13/2023 at 20:40 Approved by: Sha Lou M.D. on 12/13/2023 at 20:41
[2023-12-13 20:54] LABS: Reflexed Lactate in 2 Hours Y
[2023-12-13 21:50] LABS: Lactate 2HR (Lactic Acid Rflx) 1.6 mmol/L (0.7-2.1)
[2023-12-13] MEDS: ERYTHROMYCIN OPHTH 1 GM OINT 1 APPLIC EYE-RIGHT (22:31)
[2023-12-13] MEDS: cefTRIAXone 1,000 MG in SODIUM CHLORIDE 0.9% 100 ML 200 MG IV (23:14)
[2023-12-13 23:42] LABS: Troponin I < 0.012 ng/mL (0.01-0.034)
[2023-12-14] VITALS (12 sets, daily range): BP systolic 88–159; BP diastolic 52–72; PULSE 74–115; RESP 15–23; TEMP 36.1–37; O2SAT 88–97; BMI 20.6
[2023-12-14] MEDS: SODIUM CHLORIDE 0.9% 1,000 ML 1000 ML IV (00:06)
[2023-12-14 00:48] LABS: Appearance Urine UA CLEAR; Bilirubin Urine UA NEGATIVE (NEGATIVE); Color Urine UA YELLOW; Glucose Urine UA NEGATIVE (Negative); Ketones Urine UA TRACE (NEGATIVE); Leukocyte Esterase Urine UA NEGATIVE (NEGATIVE); Nitrite Urine UA NEGATIVE (Negative); Occult Blood Urine UA NEGATIVE (Negative); Protein Urine UA 1+ (Negative); Specific Gravity Urine UA 1.025 (1.000-1.035); Urobilinogen Urine UA 0.2 E.U./dL (0.2); pH Urine UA 5.5 (4.5-8.0)
[2023-12-14 00:58] LABS: Bacteria Urine None Seen; Culture Indicated Urine Cult Not Indicated; RBC Urine None Seen (0-5/HPF); Squamous Epithelial Cell Urine 0-1 /HPF (0-5/HPF); Urine Volume 10mL (spun); WBC Urine None Seen (0-5/HPF)
--- NOTE | 2023-12-14 01:41 | PC.WOUNDPHOT ---
Sutures to L eyelid
--- NOTE | 2023-12-14 01:50 | PC.NURSE ---
Pt arrived via stretcher from ER to 210. AOx4, room air at 94% denies any shortness of breath. Lungs clear. HR regular, pulse at 100. Placed on tele. Denies any pain or dizziness when transferring to bed. Bruised R eye with sutures to eyelid, see wound care photo. Healing scab to BLE. Instructed to use call light for any needs, bed alarm is activated. Will monitor.
--- NOTE | 2023-12-14 06:47 | PM.HP.1 ---
History of Present Illness History of Present Illness Date Patient Seen: 12/14/23 Time Patient Seen: 06:47 Chief complaint: Syncope, +LOC, Lac. No thinners. +Orthostatic Narrative: 78-year-old male sustained a laceration to his left leg within the last couple of weeks seem to have low-grade infection was treated with oral antibiotics. Seem to be back to normal state of health maybe some increased redness of his leg but had an episode day of admission when he was sitting at a table in his house playing cards when he stood up to go to the bathroom he became lightheaded dizzy. He did go to the bathroom had some diarrhea and then apparently when he was stood up to try and ambulate away from the toilet he lost consciousness found himself on the floor. He was unable to get up off the ground because of generalized weakness for probably an hour so. Medics were eventually summoned. He did injure himself over his right eye. Prior to this he had been feeling fine normal. He actually went to the walk-in clinic over concerns about the small wound on his leg EMS was summoned found him to be relatively hypotensive which was documented in the ER as well IV fluids given in the ER corrected his modest hypotension and patient felt much better. Lab work in the ER was unremarkable. EKG unremarkable. No rhythm disturbances noted on telemetry He was admitted for continued observation etcetera [facility] Medical History Essential hypertension Rectal cancer (~04/2022) COPD (chronic obstructive pulmonary disease) Penile abnormality Acquired hypothyroidism (01/10/15) Mixed hyperlipidemia (10/08/10) Impaired glucose tolerance (10/08/10) Surgical History S/P closure of ileostomy (~01/2023) History of low anterior resection of rectum (~12/2022) S/P inguinal hernia repair (~08/2023) Family History Father Prostate cancer Sister Lung cancer Mother Myocardial infarct Social History marital status: number of children: 2 household members: spouse lives independently: Yes caregiver/support person: No housing: house pets and animals: No education level: high school occupational status: other Previous occupational history: Self Employed - [employer] travel history: over 6 months ago leisure activities: fishing and other Smoking Status: Current some day smoker Tobacco: How many years used: 50 Smokeless tobacco user: other quit status: considering quitting second hand exposure: No alcohol intake: current substance use type: does not use Meds Home Medications and Allergies Home Medications Medication Instructions Recorded Confirmed Type lorazepam 0.5 mg tablet 0.5 mg PO BID PRN Sleep 10/08/22 12/14/23 History polyethylene glycol 3350 17 gram 17 g PO DAILY 03/25/23 12/14/23 History oral powder packet levothyroxine 150 mcg tablet 150 mcg PO QAM #90 tabs 09/03/23 12/14/23 Rx amoxicillin 875 mg-potassium 1 tab PO BID #14 tabs 12/13/23 12/14/23 Rx clavulanate 125 mg tablet albuterol sulfate 90 mcg/actuation 2 puff inhalation Q4-6H PRN 12/14/23 12/14/23 History aerosol inhaler wheezing metoprolol succinate 25 mg 25 mg PO DAILY 12/14/23 12/14/23 History tablet,extended release 24 hr Allergies Allergy/AdvReac Type Severity Reaction Status Date / Time No Known Drug Allergies Allergy Verified 12/13/23 19:12 Review of Systems Review of Systems ROS: Yes All systems reviewed with the patient and are negative except as otherwise documented Exam Vital Signs (past 8 hours): - 12/13/23 23:00 12/13/23 23:00 12/13/23 23:30 Temperature Pulse Rate 96 H Pulse Rate [Orthostatic Lying] Pulse Rate [Orthostatic Sitting] Pulse Rate [Orthostatic Standing] Respiratory Rate 19 Blood Pressure 117/56 L 108/63 Blood Pressure [Orthostatic Lying] Blood Pressure [Orthostatic Sitting] Blood Pressure [Orthostatic Standing] Pulse Oximetry 93 Oxygen Delivery Method Nasal Cannula Oxygen Flow Rate 2 12/13/23 23:30 12/13/23 23:59 12/13/23 23:59 Temperature Pulse Rate 94 H 102 H Pulse Rate [Orthostatic Lying] Pulse Rate [Orthostatic Sitting] Pulse Rate [Orthostatic Standing] Respiratory Rate 22 25 H Blood Pressure 88/54 L Blood Pressure [Orthostatic Lying] Blood Pressure [Orthostatic Sitting] Blood Pressure [Orthostatic Standing] Pulse Oximetry 95 94 Oxygen Delivery Method Nasal Cannula Nasal Cannula Oxygen Flow Rate 2 2 12/14/23 00:00 12/14/23 00:01 12/14/23 00:01 Temperature Pulse Rate 112 H 115 H Pulse Rate [Orthostatic Lying] Pulse Rate [Orthostatic Sitting] Pulse Rate [Orthostatic Standing] Respiratory Rate 20 23 Blood Pressure 91/52 L Blood Pressure [Orthostatic Lying] Blood Pressure [Orthostatic Sitting] Blood Pressure [Orthostatic Standing] Pulse Oximetry 93 94 Oxygen Delivery Method Nasal Cannula Nasal Cannula Oxygen Flow Rate 2 2 12/14/23 00:04 12/14/23 00:04 12/14/23 00:08 Temperature Pulse Rate 105 H Pulse Rate [Orthostatic Lying] 96 H Pulse Rate [Orthostatic Sitting] 107 H Pulse Rate [Orthostatic Standing] 112 H Respiratory Rate 22 Blood Pressure 112/58 L Blood Pressure [Orthostatic Lying] 112/58 L Blood Pressure [Orthostatic Sitting] 88/54 L Blood Pressure [Orthostatic Standing] 91/52 L Pulse Oximetry Oxygen Delivery Method Oxygen Flow Rate 12/14/23 00:08 12/14/23 00:23 12/14/23 00:23 Temperature Pulse Rate 104 H Pulse Rate [Orthostatic Lying] Pulse Rate [Orthostatic Sitting] Pulse Rate [Orthostatic Standing] Respiratory Rate 19 Blood Pressure 101/60 Blood Pressure [Orthostatic Lying] Blood Pressure [Orthostatic Sitting] Blood Pressure [Orthostatic Standing] Pulse Oximetry 88 L 97 Oxygen Delivery Method Room Air Nasal Cannula Oxygen Flow Rate 2 12/14/23 00:30 12/14/23 00:30 12/14/23 01:43 Temperature Pulse Rate 104 H Pulse Rate [Orthostatic Lying] Pulse Rate [Orthostatic Sitting] Pulse Rate [Orthostatic Standing] Respiratory Rate 18 Blood Pressure 96/58 L Blood Pressure [Orthostatic Lying] Blood Pressure [Orthostatic Sitting] Blood Pressure [Orthostatic Standing] Pulse Oximetry 95 Oxygen Delivery Method Nasal Cannula Room Air Oxygen Flow Rate 2 12/14/23 01:56 12/14/23 05:12 Temperature 96.9 F L 98.6 F Pulse Rate 100 H 74 Pulse Rate [Orthostatic Lying] Pulse Rate [Orthostatic Sitting] Pulse Rate [Orthostatic Standing] Respiratory Rate 18 18 Blood Pressure 111/61 110/62 Blood Pressure [Orthostatic Lying] Blood Pressure [Orthostatic Sitting] Blood Pressure [Orthostatic Standing] Pulse Oximetry 94 94 Oxygen Delivery Method Oxygen Flow Rate 0 0 Oxygen Delivery Method Room Air Oxygen Flow Rate 0 Narrative Exam Narrative: Elderly male in no obvious distress lying in hospital bed with obvious black eye around his right eye HEENT unremarkable Neck-no bruits Lungs-clear with good breath sounds Heart-regular rate and rhythm Abdomen-benign Extremities-no cyanosis clubbing or edema, small scratched like wound lateral left leg below the knee, mild surrounding erythema with eschar formation over the top Objective Labs 12/13/23 18:40 12/13/23 18:40 Labs: Laboratory Results - last 24 hr 12/13/23 12/13/23 12/13/23 18:40 21:12 22:50 WBC 10.1 RBC 5.53 Hgb 17.5 Hct 52.9 MCV 95.7 MCH 31.6 MCHC 33.0 RDW 14.7 Plt Count 261 Neut % (Auto) 89.9 H Lymph % (Auto) 4.9 L [place] % (Auto) 3.9 Eos % (Auto) 0.9 L Baso % (Auto) 0.4 Neut # (Auto) 9100 H Lymph # (Auto) 500 L [place] # (Auto) 400 Eos # (Auto) 100 Baso # (Auto) 0 PT 10.7 INR 0.9 APTT 30 Sodium 142 Potassium 4.3 Chloride 101 Carbon Dioxide 29 BUN 23 H Creatinine 1.17 Estimated GFR > 60 BUN/Creatinine Ratio 19.7 Glucose 146 H Lactate 2.7 H 1.6 Calcium 10.1 Total Bilirubin 0.7 AST 36 ALT 20 Alkaline Phosphatase 115 Total Creatine Kinase 78 Troponin I < 0.012 < 0.012 Total Protein 9.6 H Albumin 5.0 Globulin 4.6 H Albumin/Globulin Ratio 1.1 Lipase 121 Procalcitonin 0.076 Urine Color Urine Appearance Urine pH Ur Specific [place] Urine Protein Urine Glucose (UA) Urine Ketones Urine Occult Blood Urine Nitrate Urine Bilirubin Urine Urobilinogen Ur Leukocyte Esterase Urine RBC Urine WBC Ur Squamous Epith Cells Urine Bacteria Ur Culture Indicated? Vol Urine Centrifuged 12/14/23 00:28 WBC RBC Hgb Hct MCV MCH MCHC RDW Plt Count Neut % (Auto) Lymph % (Auto) [place] % (Auto) Eos % (Auto) Baso % (Auto) Neut # (Auto) Lymph # (Auto) [place] # (Auto) Eos # (Auto) Baso # (Auto) PT INR APTT Sodium Potassium Chloride Carbon Dioxide BUN Creatinine Estimated GFR BUN/Creatinine Ratio Glucose Lactate Calcium Total Bilirubin AST ALT Alkaline Phosphatase Total Creatine Kinase Troponin I Total Protein Albumin Globulin Albumin/Globulin Ratio Lipase Procalcitonin Urine Color Yellow Urine Appearance Clear Urine pH 5.5 Ur Specific [place] 1.025 Urine Protein 1+ H Urine Glucose (UA) Negative Urine Ketones Trace H Urine Occult Blood Negative Urine Nitrate Negative Urine Bilirubin Negative Urine Urobilinogen 0.2 Ur Leukocyte Esterase Negative Urine RBC None seen Urine WBC None seen Ur Squamous Epith Cells 0-1 /hpf Urine Bacteria None seen Ur Culture Indicated? Cult not indicated Vol Urine Centrifuged 10ml (spun) Assessment & Plan Assessment & Plan narrative: 1. Syncope-patient was syncopal spell with documented hypotension. That is occurred in the setting of getting up after being seated for awhile and then having diarrhea which would certainly make me wonder about a vasovagal episode although was fairly prolonged if that was the source. No other etiology is likely at this point. Does not appear to have overwhelming sepsis or anything like that. Will look for neurologic as well as cardiac source of his syncope. Carotid ultrasound be obtained. Head CT was unremarkable. Continue monitoring on telemetry. Echocardiography makes sense. Patient also received a tetanus shot at his walk-in clinic visit earlier in the morning and wonder if perhaps out as a contributing factor (although unclear as to the exact mechanism) Will continue with IV fluid replacement given that he was orthostatic and seem to improve with fluid administration in the emergency department. In the end patient may been relatively volume depleted perhaps related to his recent trip to [facility] 2. Hypertension-patient is usually on antihypertensives. Will hold for now while monitoring his blood pressure. Blood pressure at the walk-in clinic earlier in the day was excellent in the 140s systolic for him which is typical. 3. Hypothyroidism-continue patient's usual thyroid replacement 4. VTE prophylaxis-Lovenox has been ordered 5. Code status-full code in the event of a sudden cardiac or respiratory arrest which is not anticipated Time-Based Coding :: [TOTAL MINUTES] spent with patient and on the chart (including review of chart, obtaining history, exam, reviewing outside data, placing orders, documenting exam and treatment plan, and counseling patient) on [DATE]. PROFEE Charge Codes Initial inpatient/observation care: [id number]
[2023-12-14] MEDS: LEVOTHYROXINE 75 MCG TABLET 150 MCG PO (06:54)
[2023-12-14] MEDS: SODIUM CHLORIDE 0.45% 1,000 ML 125 ML IV (06:54)
--- NOTE | 2023-12-14 06:55 | DI.ECHO.S_ITS ---
Version: 1 Study ID: [id number] [place] [address] Name: MER VIDAL Study Date: 12/14/2023, 11: 42 AM : 1945 BP: 112 / 70 mmHg Gender: Male Height: 72 in Age: 78 Years Weight: 152 lb BSA: 1.90 mA? Ordering: ANGELES MOON Referring: ANGELES MOON Clinician: Cristy Bowers Reason For Study: SYNCOPE History: Summary Statements This is a somewhat technically difficult study characterized by off axis views. Normal sinus rhythm. Normal LV size and wall thickness. LV systolic function is estimated at 50-55%. Mildly dilated RV; otherwise normal chamber sizes. No significant valvular abnormalities. No prior study available for comparison. Procedure: A two-dimensional transthoracic echocardiogram with color flow and Doppler was performed. The apical views were difficult to obtain and are suboptimal in quality. Apical views/ measurements were mostly taken from an off-axis window. There is no prior echocardiogram noted for this patient. The patient had a bundle branch block rhythm during the exam. The heart rate ranged between 87-96 bpm during the study. Left Ventricle: The ejection fraction is estimated to be 50-55%. The left ventricle is normal in size and wall thickness. Septal motion is consistent with conduction abnormality. Right Ventricle: The right ventricular systolic function is normal. The right ventricle is mildly dilated. Atria: There is no Doppler evidence for an interatrial shunt. The left atrium grossly appears normal in size. Right atrial size is normal. Mitral Valve: There is borderline mitral valve prolapse. There is mild mitral regurgitation. The mitral valve leaflets appear borderline thickened, but open well. Aortic Valve: No aortic regurgitation is present. There is no aortic valve stenosis. The aortic valve is mildly calcified. There is mild aortic valve sclerosis. Tricuspid Valve: There is trace tricuspid regurgitation. Pulmonary artery pressures cannot be estimated because of the lack of a measurable TR jet velocity. The tricuspid valve is normal in structure and function. Pulmonic Valve: There is trace pulmonic regurgitation. The pulmonic valve is not well visualized. Great Vessels: The ascending aorta could not be visualized. The aortic root is normal size. The IVC is of normal diameter and collapses greater than 50% with a sniff. This suggests a low right atrial pressure of 3 mm Hg. Pericardium/ Pleura: There is no pericardial effusion. There is no pleural effusion. 2D and M-Mode Measurements and Calculations LVIDd: 5.3 cm LVOT diam: 1.98 cm LVIDs: 4.0 cm Ao root diam: 2.9 cm IVSd: 0.92 cm LVPWd: 0.78 cm LV carballo. diameter/BSA (cm/m^2): 2.8 LV sys. diameter/BSA (cm/m^2): 2.09 EPSS: 0.80 cm RVD1 (basal): 4.4 cm RVD2 (mid): 3.1 cm TAPSE: 2.26 cm LA A4 area: 15.7 technical aide? IVC diam: 1.72 cm LA length (vol): 4.6 cm RA area: 14.1 technical aide? RA long axis: 4.0 cm RA vol: 42.0 ml RA : 22.1 ml/mA? Doppler Measurements and Calculations Ao V2 max: 172.8 cm/sec LVOT Max Franklyn: 99.5 cm/sec Ao V2 mean: 119.1 cm/sec LV V1 max P.0 mmHg Ao V2 VTI: 30.6 cm LV V1 VTI: 16.2 cm Ao max P.9 mmHg SV(LVOT): 49.8 ml Ao mean P.5 mmHg MELVIN(I,D): 1.63 technical aide? MELVIN(V,D): 1.77 technical aide? MELVIN indexed to BSA (cm^2/m^2): 0.86 sev ratio: 0.53 MV E max franklyn: 68.2 cm/sec MV dec time: 0.25 sec MV A max franklyn: 76.0 cm/sec MV E/A: 0.90 Med Peak E' Franklyn: 8.5 cm/sec Lat Peak E' Franklyn: 11.5 cm/sec E/e' average: 7.0 PA V2 max: 167.1 cm/sec PA mean P.5 mmHg Rhianna Parish M.D. Electronically signed by: Rhianna Parish M.D. 12/14/2023, 5: 52 PM
--- NOTE | 2023-12-14 06:55 | DI.US.S_ITS ---
PROCEDURE: US CAROTID DOPPLER BI INDICATIONS: syncope TECHNIQUE: Color and pulse Doppler interrogation was performed of both carotid systems, with image documentation and velocity measurements. COMPARISON: [facility], CT, CT FACIAL BONES WO CON, 12/13/2023, 20:24. [facility], [place], PET NECK TO MID THIGH, 06/19/2022, 9:02. FINDINGS: Stenosis calculations are based on SRU (Society of Radiologists in Ultrasound) criteria. Right side: Brachial blood pressure: Not obtained due to pre-existing IV in the right antecubital fossa. Common carotid artery peak systolic velocity: 112 cm/sec. Internal carotid artery peak systolic velocity: 114 cm/sec. Internal carotid artery end diastolic velocity: 37 cm/sec. External carotid artery peak systolic velocity: 124 cm/sec. ICA/CCA peak systolic ratio: 1.0 . Youngblood scale imaging description: Mild atherosclerotic plaque Percent internal carotid artery stenosis: Less than 50% . Vertebral artery: Flow direction is antegrade. Left side: Brachial blood pressure: 107/60 mm Hg. Common carotid artery peak systolic velocity: 125 cm/sec. Internal carotid artery peak systolic velocity: 134 cm/sec. Internal carotid artery end diastolic velocity: 46 cm/sec. External carotid artery peak systolic velocity: 158 cm/sec. ICA/CCA peak systolic ratio: 1.1 . Youngblood scale imaging description: Mild atherosclerotic plaque Percent internal carotid artery stenosis: 50-69% Vertebral artery: Flow direction is antegrade. IMPRESSION: 1. Less than 50% stenosis of the right internal carotid artery. 2. 50-69% stenosis of the left internal carotid artery. 3. Antegrade flow in the vertebral arteries. Dictated by: Tay Das M.D. on 12/14/2023 at 10:13 Approved by: Tay Das M.D. on 12/14/2023 at 10:16
[2023-12-14] MEDS: DOXYCYCLINE HYCLATE 100 MG TABLET PO (09:26)
[2023-12-14] MEDS: ENOXAPARIN 40 MG/0.4 ML SYRINGE SUBCUT (09:26)
--- NOTE | 2023-12-15 09:28 | PM.DS.1 ---
History of Present Illness History of Present Illness Date Patient Seen: 12/14/23 Time Patient Seen: 17:00 Chief complaint: Syncope, +LOC, Lac. No thinners. +Orthostatic Narrative: 78-year-old male sustained a laceration to his left leg within the last couple of weeks seem to have low-grade infection was treated with oral antibiotics. Seem to be back to normal state of health maybe some increased redness of his leg but had an episode day of admission when he was sitting at a table in his house playing cards when he stood up to go to the bathroom he became lightheaded dizzy. He did go to the bathroom had some diarrhea and then apparently when he was stood up to try and ambulate away from the toilet he lost consciousness found himself on the floor. He was unable to get up off the ground because of generalized weakness for probably an hour so. Medics were eventually summoned. He did injure himself over his right eye. Prior to this he had been feeling fine normal. He actually went to the walk-in clinic over concerns about the small wound on his leg EMS was summoned found him to be relatively hypotensive which was documented in the ER as well IV fluids given in the ER corrected his modest hypotension and patient felt much better. Lab work in the ER was unremarkable. EKG unremarkable. No rhythm disturbances noted on telemetry He was admitted for continued observation etcetera Discharge Providers Provider Date of admission: 12/14/23 00:30 Discharge Date: 12/14/23 Primary care physician: Alexandro Russell MD Discharge provider: Alexandro Russell MD Summary Hospital Course Discharge Diagnosis: 1. Syncope 2. Volume depletion/dehydration 3. Hypertension 4. Forehead laceration secondary to fall 5. Fall from ground level Hospital Course: Patient was admitted as above. He was somewhat orthostatic in the ER initially received some significant IV fluids and orthostasis seem to resolve. Follow-up orthostatic vitals did not demonstrate persistence of his orthostatic change. Patient was clinically much improved Carotid ultrasound was unremarkable. Echocardiogram of the heart was also unremarkable for etiology for his syncopal spell Patient remained clinically stable and was felt to be safe for discharge home. Blood pressure remained on the lowish for him side however and upon discharge he will continue on his metoprolol but at a lower dose at 12.5 mg verses the prior home dose of 25 mg Exam Vital Signs (past 8 hours): Oxygen Delivery Method Room Air Oxygen Flow Rate 0 Objective Labs 12/13/23 18:40 12/13/23 18:40 [facility] Medical History Essential hypertension Rectal cancer (~04/2022) COPD (chronic obstructive pulmonary disease) Penile abnormality Acquired hypothyroidism (01/10/15) Mixed hyperlipidemia (10/08/10) Impaired glucose tolerance (10/08/10) Surgical History S/P closure of ileostomy (~01/2023) History of low anterior resection of rectum (~12/2022) S/P inguinal hernia repair (~08/2023) Family History Father Prostate cancer Sister Lung cancer Mother Myocardial infarct Social History marital status: number of children: 2 household members: spouse lives independently: Yes caregiver/support person: No housing: house pets and animals: No education level: high school occupational status: other Previous occupational history: Self Employed - [employer] travel history: over 6 months ago leisure activities: fishing and other Smoking Status: Current some day smoker Tobacco: How many years used: 50 Smokeless tobacco user: other quit status: considering quitting second hand exposure: No alcohol intake: current substance use type: does not use Discharge Assessment & Plan Assessment and Plan Plan of Treatment: Patient to return home. He will continue on metoprolol but at 12.5 mg of metoprolol succinate rather than previous dose Early follow up with Dr. Russell in the primary care clinic for re-evaluation Discharge Plan Discharge Plan Patient Disposition: Home Discharge orders & Medications Prescriptions: New doxycycline hyclate 100 mg Tablet 100 mg PO BID Qty: 12 0RF Continued polyethylene glycol 3350 17 gram powder in packet 17 g PO DAILY levothyroxine 150 mcg tablet 150 mcg PO QAM Qty: 90 0RF Rx Instructions: APPT DUE PRIOR TO END OF RX/FUTURE FILLS. PLEASE CALL TO SCHEDULE APPT. THANK YOU 09/03/23. lorazepam 0.5 mg tablet 0.5 mg PO BID PRN (Reason: Sleep) albuterol sulfate 90 mcg/actuation HFA aerosol inhaler 2 puff INHALATION Q4-6H PRN (Reason: wheezing) Changed metoprolol succinate 25 mg tablet extended release 24 hr 12.5 mg PO DAILY Qty: 45 0RF Discontinued amoxicillin-pot clavulanate 875-125 mg tablet 1 tab PO BID Qty: 14 0RF Follow up/Referrals: Alexandro Russell MD [Primary Care Provider] - 12/27/23 10:30 am (APPT:12/26 @ 10:[address] Russell please arrive 15 min prior to sccheduled appointment time ) Discharge Health Status Multidrug resistant organism: No MDRO Diet/Activity/Treatments Diet: Diet as Tolerated Visit Report/Discharge Packet Stand Alone Forms: Patient Portal/API Discharge Data Primary Care Provider: Alexandro Russell Attending Provider: Alexandro Russell Admit Date/Time: 12/14/23 00:30 PROFEE Charge Codes Discharge inpatient/observation: [id number]
== END 2023-12-14 17:37 | disposition home or self-care (01) ==
LOC: ED 12-14 00:31 → AC 12-14 00:31
PROVIDERS: Admitting Provider Family Medicine; Emergency Provider Emergency Medicine; PCP Internal Medicine; Referring Provider Emergency Medicine; Visit Provider Internal Medicine
DX: R55 Syncope and collapse (principal); S01.111A Laceration without foreign body of right eyelid and periocular area, initial encounter; S01.81XA Laceration without foreign body of other part of head, initial encounter; W18.30XA Fall on same level, unspecified, initial encounter; Y92.009 Unspecified place in unspecified non-institutional (private) residence as the place of occurrence of the external cause; R53.1 Weakness; I95.9 Hypotension, unspecified; I10 Essential (primary) hypertension; E03.9 Hypothyroidism, unspecified; E86.0 Dehydration
CPT/HCPCS: 12013; 36415; 70450; 70486; 71045; 80053; 81001; 82550; 83605; 83690; 84145; 84484; 85025; 85610; 85730; 87040; 93005; 93010; 93306; 93880; 96361; 96365; 96372; 99234; 99284; 99285; G0378; J0696; J1650; J7050

== ENCOUNTER 2024-03-09 08:59 | Day surgery (SDC) | payer MEDICARE, SELFPAY ==
[2023-12-14 01:20] VITALS: BMI 20.6
[2024-03-09 09:24] VITALS: BP 112/76; PULSE 108; RESP 18; TEMP 36; O2SAT 94
--- NOTE | 2024-03-09 09:54 | PM.HP.1 ---
History of Present Illness History of Present Illness Date Patient Seen: 03/09/24 Time Patient Seen: 09:55 Chief complaint: Colonoscopy Narrative: Neris Bishop is a 78-year-old man who had a colonoscopy here in 2022 with findings rectal cancer. He underwent a low anterior resection with a diverting loop ileostomy with Dr. Jarvis in 2022. He has completed his treatment. He is back for his first surveillance colonoscopy. [facility] Medical History Essential hypertension Rectal cancer (~04/2022) COPD (chronic obstructive pulmonary disease) Penile abnormality Acquired hypothyroidism (01/10/15) Mixed hyperlipidemia (10/08/10) Impaired glucose tolerance (10/08/10) Surgical History S/P closure of ileostomy (~01/2023) History of low anterior resection of rectum (~12/2022) S/P inguinal hernia repair (~08/2023) Family History Father Prostate cancer Sister Lung cancer Mother Myocardial infarct Social History marital status: number of children: 2 household members: spouse lives independently: Yes caregiver/support person: No housing: house pets and animals: No education level: high school occupational status: other Previous occupational history: Self Employed - [employer] travel history: over 6 months ago leisure activities: fishing and other Smoking Status: Former smoker Tobacco: How many years used: 50 Smokeless tobacco user: other quit status: considering quitting second hand exposure: No alcohol intake: current substance use type: does not use Meds Home Medications and Allergies Home Medications Medication Instructions Recorded Confirmed Type metoprolol succinate 25 mg 12.5 mg PO DAILY 12/27/23 03/09/24 History tablet,extended release 24 hr albuterol sulfate 90 mcg/actuation 2 puff inhalation Q4-6H PRN 01/20/24 03/09/24 Rx aerosol inhaler wheezing #8.5 grams levothyroxine 150 mcg tablet 150 mcg PO QAM #90 tabs 01/20/24 03/09/24 Rx temazepam 15 mg capsule 15 mg PO BEDTIME 03/06/24 03/06/24 History Allergies Allergy/AdvReac Type Severity Reaction Status Date / Time No Known Drug Allergies Allergy Verified 03/09/24 09:12 Exam Vital Signs (past 8 hours): - 03/09/24 09:24 Temperature 96.8 F L Pulse Rate 108 H Respiratory Rate 18 Blood Pressure 112/76 Pulse Oximetry 94 Oxygen Delivery Method Room Air Oxygen Delivery Method Room Air Const General: No acute distress Resp Effort & Inspection: normal respiratory effort Assessment & Plan Assessment and plan (1) History of rectal cancer: Status: Acute Plan Colonoscopy Time-Based Coding :: [TOTAL MINUTES] spent with patient and on the chart (including review of chart, obtaining history, exam, reviewing outside data, placing orders, documenting exam and treatment plan, and counseling patient) on [DATE].
--- NOTE | 2024-03-09 10:34 | PM.OP.COLON ---
Operative Date/Time/Diagnoses Date of procedure: 03/09/24 Time of procedure: 10:34 Pre-op diagnosis: History of colon cancer Post-op diagnosis: same Procedure & Clinicians Study performed: Colonoscopy Same procedure as scheduled: Yes Surgeon: Kevyn Haas Procedure Notes Procedure in detail: Surgeon: Kevyn Haas MD Anesthesia: Arabella Lindsey CRNA Procedure: The patient was brought to the endoscopy suite, placed in left lateral decubitus position. The patient was connected to monitoring devices. A time-out was performed. Sedation was administered. Once the patient was adequately sedated, a digital rectal exam was performed and was normal. The scope was then inserted and advanced to the cecum where the appendiceal orifice was identified and photographed. The scope was then slowly withdrawn over greater than 6 minutes. The mucosa was thoroughly inspected. There were no large polyps. The colorectal anastomosis was visualized and there was no evidence of recurrent cancer. The scope was straightened and removed. The patient was awakened and brought to recovery. Scope withdrawal time: 15 minutes Sedation time: 20 minutes EBL: 0 Findings: Normal colon Post-procedure Disposition: PACU
[2024-03-09 10:35] VITALS: BP 95/55; PULSE 108; RESP 16; TEMP 36.4; O2SAT 95
[2024-03-09 10:42] VITALS: BP 90/50; PULSE 104; RESP 16; O2SAT 97
[2024-03-09 10:52] VITALS: BP 120/75; PULSE 100; RESP 16; TEMP 36.8; O2SAT 98
== END 2024-03-09 11:09 | disposition home or self-care (01) ==
PROVIDERS: PCP Internal Medicine; Referring Provider Surgery; Visit Provider Surgery
PROC: 0DJD8ZZ Inspection of Lower Intestinal Tract, Via Natural or Artificial Opening Endoscopic (ICD-10-PCS; CPT 45378; principal; 2024-03-09 10:00)
DX: Z12.11 Encounter for screening for malignant neoplasm of colon (principal); Z85.048 Personal history of other malignant neoplasm of rectum, rectosigmoid junction, and anus; Z90.49 Acquired absence of other specified parts of digestive tract
CPT/HCPCS: G0105; J2704

== ENCOUNTER → 2024-07-03 07:00 | Outpatient (CLI) | payer MEDICARE, SELFPAY ==
[2023-12-14 01:20] VITALS: BMI 20.6
[2024-07-03 07:44] LABS: Add Manual Diff / Slide Review NO; Basophils Absolute Auto 0 /uL (0-100); Basophils Percent Auto 1.1 % (0-2); Eosinophils Absolute Auto 200 /uL (0-450); Eosinophils Percent Auto 5.8 % (2-4); Hematocrit 44.5 % (41-53); Hemoglobin 14.9 g/dL (13.5-17.5); Lymphocytes Absolute Auto 1300 /uL (1100-4500); Lymphocytes Percent Auto 32.6 % (25-40); Mean Corpuscular HGB Conc 33.5 % (30-36); Mean Corpuscular Hemoglobin 31.9 PG (26-34); Mean Corpuscular Volume 95.4 fL (80-100); Monocytes Absolute Auto 300 /uL (0-900); Monocytes Percent Auto 8.5 % (3-14); Neutrophils Absolute Auto 2100 /uL (1500-7000); Platelet Count 199 X10^3/uL (150-400); Red Blood Cell Count 4.67 X10^6/uL (4.5-5.9); Red Cell Distribution Width 13.8 % (11.6-14.8)
[2024-07-03 07:56] LABS: Alanine Aminotransferase 16 IU/L (<50); Albumin 4.3 g/dL (3.5-5.0); Albumin Globulin Ratio 1.4 (1.0-2.8); Alkaline Phosphatase 104 U/L (38-126); Aspartate Aminotransferase 28 IU/L (17-59); BUN Creatinine Ratio 23.9 (6-22); Bilirubin Total 0.6 mg/dL (0.2-1.3); Blood Urea Nitrogen 21 mg/dL (9-20); Calcium 9.4 mg/dL (8.4-10.2); Carbon Dioxide 32 mmol/L (22-32); Chloride 102 mmol/L (98-107); Estimated Glomerular Filt Rate > 60 mL/min (>60); Globulin 3.1 g/dL (1.7-4.1); Glucose 126 mg/dL (80-110); HEMOLYSIS < 15 (0-50); Potassium 4.5 mmol/L (3.4-5.1); Sodium 142 mmol/L (137-145); Total Protein 7.4 g/dL (6.3-8.2)
[2024-07-03 08:10] LABS: Free T3, Triiodothyronine Free 4.62 pg/mL (2.77-5.27); Free T4, Direct Thyroxine 2.26 ng/dL (0.78-2.19)
[2024-07-03 08:23] LABS: Thyroid Stimulating Hormone 0.685 uIU/mL (0.47-4.68)
== END ==
LOC: LAB 07:01
PROVIDERS: PCP Internal Medicine; Referring Provider Internal Medicine; Visit Provider Internal Medicine
DX: E03.9 Hypothyroidism, unspecified (principal); R73.02 Impaired glucose tolerance (oral); C20 Malignant neoplasm of rectum; J44.9 Chronic obstructive pulmonary disease, unspecified
CPT/HCPCS: 36415; 80053; 84439; 84443; 84481; 85025

== ENCOUNTER → 2024-07-24 12:32 | Outpatient (CLI) | payer MEDICARE, SELFPAY ==
[2023-12-14 01:20] VITALS: BMI 20.6
[2024-07-24 13:29] LABS: Influenza A - CEPHEID Flu A NEGATIVE (NEGATIVE); Influenza B - CEPHEID Flu B NEGATIVE (NEGATIVE); Respiratory Syncytial Virus Negative (Negative)
[2024-07-24 13:30] LABS: COVID-19 CEPHEID 4-PLEX PCR POSITIVE (Negative)
== END ==
PROVIDERS: PCP Internal Medicine; Visit Provider Nurse Practitioner Family
DX: R05.1 Acute cough (principal)
CPT/HCPCS: 0241U; 87070

== ENCOUNTER → 2024-07-24 12:55 | Outpatient (CLI) | payer MEDICARE, SELFPAY ==
[2023-12-14 01:20] VITALS: BMI 20.6
--- NOTE | 2024-07-24 12:56 | DI.RAD.S_ITS ---
PROCEDURE: XR CHEST 2V INDICATIONS: Cough TECHNIQUE: 2 views of the chest were acquired. COMPARISON: [facility], CR, XR CHEST 1V, 12/13/2023, 19:41. FINDINGS: Surgical changes and devices: None. Lungs and pleura: Lungs are clear. No pleural effusions or pneumothorax. Mediastinum: Mediastinal contours are normal. Heart size is normal. Bones and chest wall: No suspicious bony abnormalities. Soft tissues appear unremarkable. IMPRESSION: No acute cardiopulmonary pathology. Dictated by: David Garber M.D. on 07/24/2024 at 13:26 Approved by: David Garber M.D. on 07/24/2024 at 13:31
== END ==
PROVIDERS: PCP Internal Medicine; Referring Provider Nurse Practitioner Family; Visit Provider Nurse Practitioner Family
DX: R05.1 Acute cough (principal)
CPT/HCPCS: 0241U; 71046; 87070

== ENCOUNTER → 2024-07-31 12:50 | Outpatient (CLI) | payer MEDICARE, SELFPAY ==
[2023-12-14 01:20] VITALS: BMI 20.6
[2024-07-31 13:55] LABS: Add Manual Diff / Slide Review NO; Basophils Absolute Auto 0 /uL (0-100); Basophils Percent Auto 0.6 % (0-2); Eosinophils Absolute Auto 300 /uL (0-450); Eosinophils Percent Auto 4.9 % (2-4); Hematocrit 45.6 % (41-53); Hemoglobin 15.6 g/dL (13.5-17.5); Lymphocytes Absolute Auto 1600 /uL (1100-4500); Lymphocytes Percent Auto 26.1 % (25-40); Mean Corpuscular HGB Conc 34.1 % (30-36); Mean Corpuscular Volume 93.7 fL (80-100); Monocytes Absolute Auto 300 /uL (0-900); Monocytes Percent Auto 5.1 % (3-14); Neutrophils Absolute Auto 4000 /uL (1500-7000); Neutrophils Percent Auto 63.3 % (50-75); Platelet Count 257 X10^3/uL (150-400); Red Blood Cell Count 4.87 X10^6/uL (4.5-5.9); Red Cell Distribution Width 13.5 % (11.6-14.8); White Blood Cell Count 6.3 X10^3/uL (4.5-11.0)
[2024-07-31 14:10] LABS: Alanine Aminotransferase 23 IU/L (<50); Albumin 4.5 g/dL (3.5-5.0); Albumin Globulin Ratio 1.4 (1.0-2.8); Alkaline Phosphatase 110 U/L (38-126); Aspartate Aminotransferase 30 IU/L (17-59); BUN Creatinine Ratio 22.8 (6-22); Bilirubin Total 0.6 mg/dL (0.2-1.3); Blood Urea Nitrogen 21 mg/dL (9-20); Calcium 9.4 mg/dL (8.4-10.2); Carbon Dioxide 32 mmol/L (22-32); Chloride 102 mmol/L (98-107); Estimated Glomerular Filt Rate > 60 mL/min (>60); Globulin 3.3 g/dL (1.7-4.1); Glucose 89 mg/dL (70-99); HEMOLYSIS < 15 (0-50); Potassium 4.8 mmol/L (3.4-5.1); Sodium 142 mmol/L (137-145); Total Protein 7.8 g/dL (6.3-8.2)
[2024-07-31 14:41] LABS: Carcinoembryonic Antigen 1.7 ng/mL (0.1-3.0)
== END ==
PROVIDERS: PCP Internal Medicine; Referring Provider Nurse Practitioner Gerontology; Visit Provider Nurse Practitioner Gerontology
DX: C20 Malignant neoplasm of rectum (principal)
CPT/HCPCS: 36415; 80053; 82378; 85025

== ENCOUNTER → 2025-01-17 15:02 | Outpatient (CLI) | payer MEDICARE, SELFPAY ==
[2023-12-14 01:20] VITALS: BMI 20.6
--- NOTE | 2025-01-17 15:05 | DI.RAD.S_ITS ---
PROCEDURE: XR FEMUR RT MIN 2V INDICATIONS: pain willie to groin/medial thigh TECHNIQUE: 2 views of the femur were acquired. COMPARISON: None. FINDINGS: Bones: No fractures or dislocations. No suspicious bony lesions. Mild nonuniform joint space narrowing with osteophytic lipping of the acetabulum. Soft tissues: No suspicious soft tissue calcifications or masses. Vascular calcifications. IMPRESSION: No acute bony abnormality. Mild to moderate hip osteoarthritis. Dictated by: Sha Lou M.D. on 01/17/2025 at 16:07 Approved by: Sha Lou M.D. on 01/17/2025 at 16:07
== END ==
PROVIDERS: PCP Internal Medicine; Referring Provider Internal Medicine; Visit Provider Physician Assistant
DX: I73.9 Peripheral vascular disease, unspecified (principal); M16.11 Unilateral primary osteoarthritis, right hip
CPT/HCPCS: 73552

== ENCOUNTER → 2025-01-18 14:01 | Outpatient (CLI) | payer MEDICARE, SELFPAY ==
[2023-12-14 01:20] VITALS: BMI 20.6
--- NOTE | 2025-01-18 14:02 | DI.US.S_ITS ---
PROCEDURE: US PERIPH VENOUS LOW EXTREM RT INDICATIONS: pain to medial thigh x 1 mo TECHNIQUE: Real-time imaging, as well as color and pulse Doppler interrogation, were performed of the lower extremity deep veins from the inguinal ligament to the popliteal fossa, with documentation of the visualized calf veins. COMPARISON: None. FINDINGS: The common femoral, femoral, popliteal, and the visualized calf veins are normally compressible, and free of intraluminal thrombus. Color and pulse Doppler demonstrate normal phasic intraluminal flow. There is normal augmentation response to distal compression maneuver. There is a partially reducible fat containing right inguinal hernia. IMPRESSION: Negative right lower extremity duplex venous ultrasound for DVT. Incompletely reducible fat containing right inguinal hernia. Dictated by: Rosendo Rivera M.D. on 01/18/2025 at 15:06 Approved by: Rosendo Rivera M.D. on 01/18/2025 at 15:07
== END ==
LOC: US 14:02
PROVIDERS: PCP Internal Medicine; Referring Provider Physician Assistant; Visit Provider Physician Assistant
DX: I73.9 Peripheral vascular disease, unspecified (principal); M79.604 Pain in right leg; K40.90 Unilateral inguinal hernia, without obstruction or gangrene, not specified as recurrent
CPT/HCPCS: 93971

== ENCOUNTER → 2025-02-05 09:47 | Outpatient (CLI) | payer MEDICARE, SELFPAY ==
[2023-12-14 01:20] VITALS: BMI 20.6
== END ==
LOC: RESP 09:50
PROVIDERS: PCP Internal Medicine; Referring Provider Internal Medicine; Visit Provider Internal Medicine
DX: J44.9 Chronic obstructive pulmonary disease, unspecified (principal); F17.210 Nicotine dependence, cigarettes, uncomplicated; R94.2 Abnormal results of pulmonary function studies
CPT/HCPCS: 94060; 94726; 94729